=== PATIENT | female | born 1940 | race Caucasian/White ===

== ENCOUNTER → 2017-10-30 10:02 | Outpatient (CLI) | payer MEDICARE, SELFPAY ==
[2017-10-30 11:28] LABS: Hemoglobin A1C% w Est Avg Glu 5.9 % (4.0-6.0)
[2017-10-30 11:41] LABS: Alanine Aminotransferase 33 IU/L (9-52); Albumin 4.3 g/dL (3.5-5.0); Albumin Globulin Ratio 1.5 (1.0-2.8); Alkaline Phosphatase 62 U/L (38-126); Aspartate Aminotransferase 27 IU/L (14-36); Bilirubin Total 0.9 mg/dL (0.2-1.3); Blood Urea Nitrogen 36 mg/dL (7-17); Calcium 9.6 mg/dL (8.4-10.2); Carbon Dioxide 31 mmol/L (22-32); Chloride 98 mmol/L (98-107); Cholesterol 186 mg/dL (140-199); Estimated Glomerular Filt Rate 43.8 mL/min (>60); Globulin 2.9 g/dL (1.7-4.1); Glucose 118 mg/dL (80-110); HDL Cholesterol 62 mg/dL (40-60); HEMOLYSIS < 15 (0-50); LDL Cholesterol Calculated 101 mg/dL (<100); Sodium 140 mmol/L (137-145); Total Protein 7.2 g/dL (6.3-8.2); Triglycerides 113 mg/dL (35-150)
== END ==
PROVIDERS: PCP Family Medicine; Visit Provider Family Medicine
DX: N18.3 Chronic kidney disease, stage 3 (moderate) (principal); I10 Essential (primary) hypertension; R73.03 Prediabetes
CPT/HCPCS: 36415; 80053; 80061; 83036

== ENCOUNTER → 2017-10-31 10:11 | Outpatient (CLI) | payer MEDICARE, SELFPAY ==
--- NOTE | 2017-10-31 | DI.MG.S_ITS ---
BILATERAL DIGITAL SCREENING MAMMOGRAM 3D/2D WITH CAD POST LUMPECTOMY: 10/31/2017 CLINICAL: Routine screening. Personal history of right breast cancer. Family history of breast cancer. Comparison is made to exams dated: 01/15/2017 localization, 01/15/2017 specimen, and 10/30/2016 mammogram - [facility]. The tissue of both breasts is heterogeneously dense. This may lower the sensitivity of mammography. Current study was also evaluated with a Computer Aided Detection (CAD) system. There are post operative findings in the right breast. No significant masses, calcifications, or other findings are seen in either breast. There has been no significant interval change. IMPRESSION: NEGATIVE There is no mammographic evidence of malignancy. A 1 year screening mammogram is recommended. This exam was interpreted at Station ID: [id number]. NOTE: For mammograms, a report in lay terms will be sent to the patient. Approximately 15% of breast malignancies will not be visualized mammographically. In the management of a palpable breast mass, a negative mammogram must not discourage biopsy of a clinically suspicious lesion. Electronically Signed By: Stephanie wallace/cristian:10/31/2017 11:40:18 letter sent: Normal Exam ACR BI-RADS Category 1: Negative 3341F
== END ==
PROVIDERS: Family Provider Family Medicine; PCP Family Medicine; Visit Provider Family Medicine
DX: Z12.31 Encounter for screening mammogram for malignant neoplasm of breast (principal); Z85.3 Personal history of malignant neoplasm of breast; Z80.3 Family history of malignant neoplasm of breast
CPT/HCPCS: 77063; 77067

== ENCOUNTER → 2018-08-21 11:04 | Outpatient (CLI) | payer MEDICARE, SELFPAY ==
[2018-06-25 13:57] VITALS: BMI 28.5
[2018-08-21 12:03] LABS: Add Manual Diff / Slide Review NO; Basophils Absolute Auto 0 /uL (0-100); Basophils Percent Auto 0.3 % (0-2); Eosinophils Absolute Auto 100 /uL (0-450); Eosinophils Percent Auto 1.9 % (2-4); Hematocrit 36.2 % (36-46); Hemoglobin 12.2 g/dL (12.0-16.0); Lymphocytes Absolute Auto 1400 /uL (1100-4500); Lymphocytes Percent Auto 24.1 % (25-40); Mean Corpuscular HGB Conc 33.7 % (30-36); Mean Corpuscular Hemoglobin 35.5 PG (26-34); Mean Corpuscular Volume 105.3 fL (80-100); Monocytes Absolute Auto 500 /uL (0-900); Monocytes Percent Auto 7.8 % (3-14); Neutrophils Absolute Auto 3900 /uL (1500-7000); Neutrophils Percent Auto 65.9 % (50-75); Platelet Count 193 X10^3/uL (150-400); Red Blood Cell Count 3.44 X10^6/uL (4.0-5.2); White Blood Cell Count 5.9 X10^3/uL (4.5-11.0)
[2018-08-21 12:21] LABS: Alanine Aminotransferase 29 IU/L (9-52); Albumin 4.4 g/dL (3.5-5.0); Albumin Globulin Ratio 1.7 (1.0-2.8); Alkaline Phosphatase 55 U/L (38-126); Aspartate Aminotransferase 25 IU/L (14-36); BUN Creatinine Ratio 30.9 (6-22); Bilirubin Total 0.6 mg/dL (0.2-1.3); Blood Urea Nitrogen 34 mg/dL (7-17); Calcium 9.4 mg/dL (8.4-10.2); Carbon Dioxide 28 mmol/L (22-32); Chloride 101 mmol/L (98-107); Cholesterol 173 mg/dL (140-199); Estimated Glomerular Filt Rate 48.3 mL/min (>60); Globulin 2.6 g/dL (1.7-4.1); Glucose 115 mg/dL (80-110); HDL Cholesterol 68 mg/dL (40-60); HEMOLYSIS < 15 (0-50); LDL Cholesterol Calculated 80 mg/dL (<100); Sodium 140 mmol/L (137-145); Triglycerides 127 mg/dL (35-150)
[2018-08-21 13:45] LABS: TSH w/ Reflex to FT4 1.52 uIU/mL (0.47-4.68)
== END ==
PROVIDERS: PCP Family Medicine; Visit Provider Family Medicine
DX: E78.5 Hyperlipidemia, unspecified (principal); N18.3 Chronic kidney disease, stage 3 (moderate); I12.9 Hypertensive chronic kidney disease with stage 1 through stage 4 chronic kidney disease, or unspecified chronic kidney disease
CPT/HCPCS: 36415; 80053; 80061; 84443; 85025

== ENCOUNTER → 2018-09-10 13:16 | Outpatient (CLI) | payer MEDICARE, SELFPAY ==
[2018-06-25 13:57] VITALS: BMI 28.5
== END ==
PROVIDERS: PCP Family Medicine; Visit Provider Family Medicine
DX: Z78.0 Asymptomatic menopausal state (principal); Z85.3 Personal history of malignant neoplasm of breast; Z87.891 Personal history of nicotine dependence
CPT/HCPCS: 77080

== ENCOUNTER → 2018-11-04 10:09 | Outpatient (CLI) | payer MEDICARE, SELFPAY ==
[2018-06-25 13:57] VITALS: BMI 28.5
--- NOTE | 2018-11-04 | DI.MG.S_ITS ---
BILATERAL DIGITAL SCREENING MAMMOGRAM 3D/2D WITH CAD: 11/04/2018 CLINICAL: Routine screening. Personal history of right breast cancer. Family history of breast cancer. Comparison is made to exams dated: 10/31/2017 mammogram, 10/30/2016 mammogram, 04/11/2016 mammogram, and 04/09/2016 mammogram - [facility]. The tissue of both breasts is heterogeneously dense. This may lower the sensitivity of mammography. Current study was also evaluated with a Computer Aided Detection (CAD) system. There are benign post operative findings in the right breast. No significant masses, calcifications, or other findings are seen in either breast. There has been no significant interval change. IMPRESSION: There is no mammographic evidence of malignancy. A 1 year screening mammogram is recommended. This exam was interpreted at Station ID: [id number]. NOTE: For mammograms, a report in lay terms will be sent to the patient. Approximately 15% of breast malignancies will not be visualized mammographically. In the management of a palpable breast mass, a negative mammogram must not discourage biopsy of a clinically suspicious lesion. Electronically Signed By: Darrel vance/cristian:11/04/2018 16:38:33 letter sent: Normal Exam ACR BI-RADS Category 2: Benign Finding(s) 3342F
[2018-11-04 10:36] LABS: Add Manual Diff / Slide Review NO; Basophils Absolute Auto 0 /uL (0-100); Basophils Percent Auto 0.7 % (0-2); Eosinophils Absolute Auto 100 /uL (0-450); Eosinophils Percent Auto 1.7 % (2-4); Hemoglobin 11.7 g/dL (12.0-16.0); Lymphocytes Absolute Auto 1400 /uL (1100-4500); Lymphocytes Percent Auto 29.4 % (25-40); Mean Corpuscular HGB Conc 34.4 % (30-36); Mean Corpuscular Hemoglobin 36.3 PG (26-34); Mean Corpuscular Volume 105.5 fL (80-100); Monocytes Absolute Auto 500 /uL (0-900); Monocytes Percent Auto 9.4 % (3-14); Neutrophils Absolute Auto 2900 /uL (1500-7000); Neutrophils Percent Auto 58.8 % (50-75); Platelet Count 187 X10^3/uL (150-400); Red Blood Cell Count 3.22 X10^6/uL (4.0-5.2); Red Cell Distribution Width 12.8 % (11.6-14.8); White Blood Cell Count 4.9 X10^3/uL (4.5-11.0)
[2018-11-04 10:48] LABS: Alanine Aminotransferase 23 IU/L (9-52); Albumin 4.4 g/dL (3.5-5.0); Albumin Globulin Ratio 1.8 (1.0-2.8); Alkaline Phosphatase 55 U/L (38-126); Aspartate Aminotransferase 28 IU/L (14-36); Bilirubin Total 0.9 mg/dL (0.2-1.3); Blood Urea Nitrogen 33 mg/dL (7-17); Calcium 9.6 mg/dL (8.4-10.2); Carbon Dioxide 29 mmol/L (22-32); Chloride 103 mmol/L (98-107); Estimated Glomerular Filt Rate 33.8 mL/min (>60); Globulin 2.5 g/dL (1.7-4.1); Glucose 117 mg/dL (80-110); HEMOLYSIS < 15 (0-50); Potassium 4.5 mmol/L (3.4-5.1); Sodium 140 mmol/L (137-145); Total Protein 6.9 g/dL (6.3-8.2)
[2018-11-04 12:23] LABS: Rubella Antibody IgG > 350.0 IU/mL (>15)
[2018-11-07 10:17] LABS: Rubeola Measles IgG > 300.00 AU/mL (< 25.00)
== END ==
PROVIDERS: PCP Family Medicine; Visit Provider Family Medicine
DX: Z12.31 Encounter for screening mammogram for malignant neoplasm of breast (principal); Z85.3 Personal history of malignant neoplasm of breast; Z80.3 Family history of malignant neoplasm of breast; Z01.84 Encounter for antibody response examination
CPT/HCPCS: 36415; 77063; 77067; 80053; 85025; 86735; 86762; 86765

== ENCOUNTER → 2018-11-24 10:55 | Outpatient (CLI) | payer MEDICARE, SELFPAY ==
[2018-06-25 13:57] VITALS: BMI 28.5
[2018-11-24 12:25] LABS: BUN Creatinine Ratio 21.7 (6-22); Blood Urea Nitrogen 26 mg/dL (7-17); Calcium 9.3 mg/dL (8.4-10.2); Carbon Dioxide 27 mmol/L (22-32); Chloride 100 mmol/L (98-107); Estimated Glomerular Filt Rate 43.7 mL/min (>60); Glucose 111 mg/dL (80-110); HEMOLYSIS < 15 (0-50); Potassium 4.4 mmol/L (3.4-5.1); Sodium 136 mmol/L (137-145)
== END ==
PROVIDERS: PCP Family Medicine; Visit Provider Family Medicine
DX: N18.3 Chronic kidney disease, stage 3 (moderate) (principal)
CPT/HCPCS: 36415; 80048

== ENCOUNTER → 2019-11-10 14:01 | Outpatient (CLI) | payer MEDICARE, SELFPAY ==
[2019-08-24 15:10] VITALS: BMI 28.5
[2019-11-10 14:58] LABS: Add Manual Diff / Slide Review NO; Basophils Absolute Auto 0 /uL (0-100); Basophils Percent Auto 0.4 % (0-2); Eosinophils Absolute Auto 100 /uL (0-450); Eosinophils Percent Auto 1.4 % (2-4); Hematocrit 34.9 % (36-46); Lymphocytes Absolute Auto 1600 /uL (1100-4500); Lymphocytes Percent Auto 25.4 % (25-40); Mean Corpuscular HGB Conc 34.4 % (30-36); Mean Corpuscular Hemoglobin 36.9 PG (26-34); Mean Corpuscular Volume 107.5 fL (80-100); Monocytes Absolute Auto 600 /uL (0-900); Monocytes Percent Auto 9.6 % (3-14); Neutrophils Absolute Auto 3900 /uL (1500-7000); Neutrophils Percent Auto 63.2 % (50-75); Platelet Count 189 X10^3/uL (150-400); Red Blood Cell Count 3.25 X10^6/uL (4.0-5.2); Red Cell Distribution Width 12.6 % (11.6-14.8); White Blood Cell Count 6.1 X10^3/uL (4.5-11.0)
[2019-11-10 15:04] LABS: Alanine Aminotransferase 17 IU/L (<35); Albumin 4.4 g/dL (3.5-5.0); Albumin Globulin Ratio 1.8 (1.0-2.8); Alkaline Phosphatase 57 U/L (38-126); Aspartate Aminotransferase 31 IU/L (14-36); BUN Creatinine Ratio 21.4 (6-22); Bilirubin Total 0.5 mg/dL (0.2-1.3); Blood Urea Nitrogen 21 mg/dL (7-17); Calcium 9.9 mg/dL (8.4-10.2); Carbon Dioxide 32 mmol/L (22-32); Chloride 99 mmol/L (98-107); Globulin 2.5 g/dL (1.7-4.1); Glucose 83 mg/dL (80-110); HEMOLYSIS < 15 (0-50); Potassium 3.9 mmol/L (3.4-5.1); Sodium 134 mmol/L (137-145); Total Protein 6.9 g/dL (6.3-8.2)
[2019-11-13 12:52] LABS: Vitamin B12 623 pg/mL (239-931)
== END ==
PROVIDERS: PCP Family Medicine; Referring Provider Family Medicine; Visit Provider Family Medicine
DX: D75.89 Other specified diseases of blood and blood-forming organs (principal); I10 Essential (primary) hypertension
CPT/HCPCS: 36415; 80053; 82607; 85025

== ENCOUNTER → 2019-12-16 15:45 | Outpatient (CLI) | payer MEDICARE, SELFPAY ==
[2019-08-24 15:10] VITALS: BMI 28.5
--- NOTE | 2019-12-16 | DI.MG.S_ITS ---
BILATERAL DIGITAL SCREENING MAMMOGRAM 3D/2D WITH CAD: 12/16/2019 CLINICAL: Routine screening. Breast cancer. Family history of breast cancer. Comparison is made to exams dated: 11/04/2018 mammogram, 10/31/2017 mammogram, and 10/30/2016 mammogram - [facility]. The tissue of both breasts is heterogeneously dense. This may lower the sensitivity of mammography. Current study was also evaluated with a Computer Aided Detection (CAD) system. There are benign post operative findings in the right breast. No significant masses, calcifications, or other findings are seen in either breast. There has been no significant interval change. IMPRESSION: There is no mammographic evidence of malignancy. A 1 year screening mammogram is recommended. This exam was interpreted at Station ID: [id number]. NOTE: For mammograms, a report in lay terms will be sent to the patient. Approximately 15% of breast malignancies will not be visualized mammographically. In the management of a palpable breast mass, a negative mammogram must not discourage biopsy of a clinically suspicious lesion. Electronically Signed By: Stephanie wallace/cristian:12/16/2019 16:09:31 copy to: Maeve Araiza letter sent: Normal Exam ACR BI-RADS Category 2: Benign Finding(s) 3342F
== END ==
PROVIDERS: PCP Family Medicine; Referring Provider Family Medicine; Visit Provider Family Medicine
DX: Z12.31 Encounter for screening mammogram for malignant neoplasm of breast (principal); Z85.3 Personal history of malignant neoplasm of breast; Z80.3 Family history of malignant neoplasm of breast
CPT/HCPCS: 77063; 77067

== ENCOUNTER 2020-03-21 15:15 | Outpatient (RCR) | payer MEDICARE, SELFPAY ==
[2019-08-24 15:10] VITALS: BMI 28.5
--- NOTE | 2020-01-11 17:09 | PT.OIE ---
Current Diagnoses Other abnormalities of gait and mobility (01/11/20) Past Medical History (Last Reviewed 12/31/19 @ 14:36 by Lilian Whitehead DO) Adult situational stress disorder (Chronic 08/03/15) Alcohol use (Acute) Cataracts, bilateral (Chronic) Chicken pox (Resolved) Chronic obstructive pulmonary disease (Chronic 06/08/15) Cobalamin deficiency (Chronic 12/26/10) Colon polyps (Chronic) Essential hypertension (Chronic 04/15/12) Glaucoma (Chronic 03/27/13) Glucose intolerance (Chronic) Hemorrhoid (Chronic ~2004) History of adenomatous polyp of colon (Chronic) Hyperlipidemia (Chronic) Malignant neoplasm of upper-outer quadrant of right breast in female, estrogen receptor positive (Chronic 11/02/16) Measles (Resolved) Seborrheic keratosis (Chronic) Sleep apnea (Chronic ~1994) Stage 3 chronic kidney disease (Chronic 09/10/14) Past Surgical History (Last Reviewed 12/31/19 @ 14:36 by Lilian Whitehead DO) History of lithotripsy (~1986) Perirectal abscess (Resolved ~1957) Pilonidal cyst (Resolved ~1959) S/P right mastectomy (Resolved) Visit Care Team Role Provider Type Lilian Whitehead DO Attending Provider Physician Family Provider Primary Care Provider Referring Provider Specialty: [facility] Address: [address] [place] [address], [facility] Email: [email or web address] Physical Therapy Initial Evaluation PT-OP-A Visit Information Start: 01/11/20 16:35 Freq: Status: Active Protocol: Document 01/11/20 16:36 HH (Rec: 01/11/20 17:07 [email or web address]) Out-Patient Physical Therapy Visit Information Visit Information Visit Type Initial Evaluation Visit Start Time 14:31 Visit Stop Time 15:15 Total Visit Minutes 44 Visit Number 06/07 Number of ORE GRADER Visits 0 Evaluation Information Evaluation Date 01/11/20 PT-OP-B Current Condition Start: 01/11/20 16:35 Freq: Status: Active Protocol: Document 01/11/20 16:36 HH (Rec: 01/11/20 17:07 [email or web address]) Current Condition History of Current Condition Onset Date Jun, 2016 Current Complaints hx of falls, poor balance History of Current Condition Pt is a 79yo female here to improve her balance. Pt stated she had glaucoma surgery in April 2016 who woke up one morning with significant vision loss from infection in June,. Pt is unable to see medial and center field every since then. She stated she could only have blurry vision for lateral visual field but mostly rely on her L eye for guidance. Her main c/ o is poor depth perception and peripheral vision who tends to bump her R side of the body into wall/ obstacles. She also noticed she has to pay close attention on steps height and surrounding obstacles on her R side. Pt has couple falls within the past year but no significant injury noted. She stated her confidence level of balance has been declining and needed to use wall/ support to cruise sometimes for safety. Treatment Goals Patient/Caregiver Goals 1. To improve her overall balance 2. Able to recover from the floor after a fall Prior Functional Status Baseline Function- ADL's Independent Baseline Function- Mobility Independent PT-OP-C Subjective Start: 01/11/20 16:35 Freq: Status: Active Protocol: Document 01/11/20 16:36 (Rec: 01/11/20 17:07 [email or web address]) Patient Questionnaires ABC- Activity Specific Balance Confidence Scale ABC Score 80.6 ABC Functional Impairment 1 to <20% Impaired (Score 81- 99) Dizziness Handicap Inventory DHI Score 38 DHI Functional Impairment 20 to 39% Impaired (Score 20- 39) PT-OP-D Balance Start: 01/11/20 16:35 Freq: Status: Active Protocol: Document 01/11/20 16:36 (Rec: 01/11/20 17:07 [email or web address]) Balance Tests Single Limb Standing Single Limb- Right 2 Single Limb- Left 2 Lawrence Balance Assessment Evaluation Sitting to Standing Ability Independent w/out Hands Unsupported Stance Safely- 2 minutes Sitting Unsupported, Feet on Floor Safely- 2 minutes Standing to Sitting Ability Safely, Minimal Hand Use Transfer Ability Safely, Minimal Hand Use Unsupported Stance- Eyes Closed Safely, 10 seconds Unsupported Stance- Eyes Open Independent, 1 minute Reaching Forward Standing Confidently, 10 inches Pick- Up Object From Floor Independent/Safe Look Behind Shoulder - Standing Shifts Weight Well Turning 360 Degrees Turns Bilateral, < 4 secs Unsupported Stance, Alternating Feet on (I)- 8 Steps in > 20 secs Stair Unsupported Tandem Stance Assist to Step-15 seconds Unilateral Leg Stance Lifts Leg/Unable to Hold Total Score Lawrence Total Score (out of 56 points) 49 PT-OP-E Functional Tests Start: 01/11/20 16:35 Freq: Status: Active Protocol: Document 01/11/20 16:36 HH (Rec: 01/11/20 17:07 [email or web address]) Functional Tests Dynamic Gait Index (DGI) Score 21 DGI Impairment Rating 1 to <20% Impaired (Score 20- 23) PT-OP-G Mobility & Gait Start: 01/11/20 16:35 Freq: Status: Active Protocol: Document 01/11/20 16:36 HH (Rec: 01/11/20 17:07 [email or web address]) Stair Climbing Evaluation Evaluation Level of Assist On Stairs Independent Devices Stair Climbing Assistive Devices Left Railing Technique/Endurance Stair Climbing Direction Ascend and Descend Stair Climbing Technique Step Over Step PT-OP-Q Treatments Start: 01/11/20 16:35 Freq: Status: Active Protocol: Document 01/11/20 16:36 HH (Rec: 01/11/20 17:08 [email or web address]) Self-Care/Home Management Treatment Education Other Education Education on importance of eye function and visual field to depth perception and mobility. Explained POC to focus on improve body awareness, SLS, LE strength to reduce risk of falling. PT-OP-T Assessment and Plan Start: 01/11/20 16:35 Freq: Status: Active Protocol: Document 01/11/20 16:36 (Rec: 01/11/20 17:07 [email or web address]) Physical Therapy Assessment Rehab Potential Rehabilitation Potential Good Evaluation Complexity Number of Personal Factors/Comorbidities 1-2 Number of Body Systems Impaired 1-2 Clinical Presentation at Evaluation Stable Impairments Impairments Activity Tolerance,Balance, Functional Activities, Functional Mobility,Gait, Strength Goals Single leg stance Impairment pt has 2s for SLS only. Photographer Assistant Goal (LTG) Pt will be able to stand on one leg up to 10 seconds to improve SL balance so she can climb stairs, step over obstacle safely. LTG Duration 6 weeks floor recovery Impairment pt stated she is unable to get up from the floor after a fall Photographer Assistant Goal (LTG) Pt will improve her B LE strength so she can recover from the floor without assistance in the future LTG Duration 6 weeks dizziness questionnaire Impairment pt scores 38 Photographer Assistant Goal (LTG) pt will score >39 on dizziness questionnaire to improve her overall balance, dizziness and confidence level for functional mobility. LTG Duration 6 weeks Assessment Summary Assessment This is a low complexity evaluation for this 79 yo active female here to improve her balance. 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 However, pt scores 21/24 for DGI, 49/56 for LAWRENCE who only has difficulty on stepping over obstacle and single leg balance primarily. 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 Physical Therapy Plan Frequency and Duration Frequency of Treatment 1x/Week Duration of Treatment 6 weeks. Plan of Care Start Date 01/11/20 Plan of Care End Date 02/25/20 Therapeutic Interventions Therapeutic Interventions Balance Training,Gait Training ,Home Exercise Program, Neuromuscular Re-education, Patient/Caregiver Education, Self-Care/Home Management, Therapeutic Activities, Therapeutic Exercises, Vestibular Rehabilitation Next Visit Focus/Plan Next Note Type Treatment Note Next Visit Plan balance training with NBOS with EC, SL stance, obstacle course, hurdles, stair climbing stepper, leg press
--- NOTE | 2020-01-11 17:09 | PT.OPPOC ---
Physical, Occupational & Speech Therapy At [facility] Current Diagnoses Other abnormalities of gait and mobility (01/11/20) Visit Care Team Role Provider Type Lilian Whitehead DO Attending Provider Physician Family Provider Primary Care Provider Referring Provider Specialty: Family Practice Address: [address] [place] [address], [id number] Email: [email or web address] Plan Of Care PT-OP-T Assessment and Plan Start: 01/11/20 16:35 Freq: Status: Active Protocol: Document 01/11/20 16:36 HH (Rec: 01/11/20 17:07 [email or web address]) Physical Therapy Assessment Rehab Potential Rehabilitation Potential Good Evaluation Complexity Number of Personal Factors/Comorbidities 1-2 Number of Body Systems Impaired 1-2 Clinical Presentation at Evaluation Stable Impairments Impairments Activity Tolerance,Balance, Functional Activities, Functional Mobility,Gait, Strength Goals Single leg stance Impairment pt has 2s for SLS only. Senior Living Goal (LTG) Pt will be able to stand on one leg up to 10 seconds to improve SL balance so she can climb stairs, step over obstacle safely. LTG Duration 6 weeks floor recovery Impairment pt stated she is unable to get up from the floor after a fall Pipe Blanks Cut Off Saw Operator Goal (LTG) Pt will improve her B LE strength so she can recover from the floor without assistance in the future LTG Duration 6 weeks dizziness questionnaire Impairment pt scores 38 Senior Living Goal (LTG) pt will score >39 on dizziness questionnaire to improve her overall balance, dizziness and confidence level for functional mobility. LTG Duration 6 weeks Assessment Summary Assessment This is a low complexity evaluation for this 79 yo active female here to improve her balance. 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 However, pt scores 21/24 for DGI, 49/56 for LAWRENCE who only has difficulty on stepping over obstacle and single leg balance primarily. 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 Physical Therapy Plan Frequency and Duration Frequency of Treatment 1x/Week Duration of Treatment 6 weeks. Plan of Care Start Date 01/11/20 Plan of Care End Date 02/25/20 Therapeutic Interventions Therapeutic Interventions Balance Training,Gait Training ,Home Exercise Program, Neuromuscular Re-education, Patient/Caregiver Education, Self-Care/Home Management, Therapeutic Activities, Therapeutic Exercises, Vestibular Rehabilitation Next Visit Focus/Plan Next Note Type Treatment Note Next Visit Plan balance training with NBOS with EC, SL stance, obstacle course, hurdles, stair climbing stepper, leg press Plan of Care Dates Plan of Care Start Date 01/11/20 Plan of Care End Date 02/25/20 Electronically Signed by: Calixto Chauhan, PT 01/11/20 [id number] Please Sign and Return: I have reviewed this Plan of Care and certify that the skilled therapy services above are required to meet the patient?s needs. Physician Signature Date Printed Name and Credentials Clinical Instructor Signature Printed Name and Credentials
--- NOTE | 2020-01-14 16:13 | PT.OTN ---
Current Diagnoses Other abnormalities of gait and mobility (01/14/20) Physical Therapy Treatment Note PT-OP-A Visit Information Start: 01/11/20 16:35 Freq: Status: Active Protocol: Document 01/14/20 14:33 HH (Rec: 01/14/20 16:13 [id number]) Out-Patient Physical Therapy Visit Information Visit Information Visit Type Treatment Note Visit Start Time 14:32 Visit Stop Time 15:15 Total Visit Minutes 43 Visit Number / Number of PIPE FINISHING SUPERVISOR Visits 0 PT-OP-B Current Condition Start: 01/11/20 16:35 Freq: Status: Active Protocol: Document 01/11/20 16:36 HH (Rec: 01/11/20 17:07 [email or web address]) Current Condition History of Current Condition Onset Date Jun, 2016 Current Complaints hx of falls, poor balance History of Current Condition Pt is a 79yo female here to improve her balance. Pt stated she had glaucoma surgery in April 2016 who woke up one morning with significant vision loss from infection in June,. Pt is unable to see medial and center field every since then. She stated she could only have blurry vision for lateral visual field but mostly rely on her L eye for guidance. Her main c/ o is poor depth perception and peripheral vision who tends to bump her R side of the body into wall/ obstacles. She also noticed she has to pay close attention on steps height and surrounding obstacles on her R side. Pt has couple falls within the past year but no significant injury noted. She stated her confidence level of balance has been declining and needed to use wall/ support to cruise sometimes for safety. Treatment Goals Patient/Caregiver Goals 1. To improve her overall balance 2. Able to recover from the floor after a fall Prior Functional Status Baseline Function- ADL's Independent Baseline Function- Mobility Independent PT-OP-C Subjective Start: 01/11/20 16:35 Freq: Status: Active Protocol: Document 01/14/20 14:33 HH (Rec: 01/14/20 16:13 HH [id number]) OP-PT Subjective Patient Comments Patient Comments Im ready for therapy PT-OP-D Balance Start: 01/11/20 16:35 Freq: Status: Active Protocol: Document 01/11/20 16:36 HH (Rec: 01/11/20 17:07 [email or web address]) Balance Tests Single Limb Standing Single Limb- Right 2 Single Limb- Left 2 Kaur Balance Assessment Evaluation Sitting to Standing Ability Independent w/out Hands Unsupported Stance Safely- 2 minutes Sitting Unsupported, Feet on Floor Safely- 2 minutes Standing to Sitting Ability Safely, Minimal Hand Use Transfer Ability Safely, Minimal Hand Use Unsupported Stance- Eyes Closed Safely, 10 seconds Unsupported Stance- Eyes Open Independent, 1 minute Reaching Forward Standing Confidently, 10 inches Pick- Up Object From Floor Independent/Safe Look Behind Shoulder - Standing Shifts Weight Well Turning 360 Degrees Turns Bilateral, < 4 secs Unsupported Stance, Alternating Feet on (I)- 8 Steps in > 20 secs Stair Unsupported Tandem Stance Assist to Step-15 seconds Unilateral Leg Stance Lifts Leg/Unable to Hold Total Score Kaur Total Score (out of 56 points) 49 PT-OP-E Functional Tests Start: 01/11/20 16:35 Freq: Status: Active Protocol: Document 01/11/20 16:36 HH (Rec: 01/11/20 17:07 [email or web address]) Functional Tests Dynamic Gait Index (DGI) Score 21 DGI Impairment Rating 1 to <20% Impaired (Score 20- 23) PT-OP-G Mobility & Gait Start: 01/11/20 16:35 Freq: Status: Active Protocol: Document 01/11/20 16:36 HH (Rec: 01/11/20 17:07 [email or web address]) Stair Climbing Evaluation Evaluation Level of Assist On Stairs Independent Devices Stair Climbing Assistive Devices Left Railing Technique/Endurance Stair Climbing Direction Ascend and Descend Stair Climbing Technique Step Over Step PT-OP-Q Treatments Start: 01/11/20 16:35 Freq: Status: Active Protocol: Document 01/14/20 14:33 HH (Rec: 01/14/20 16:13 [id number]) Cardio Equipment Recumbent Stepper (Sci-Fit) Duration (Minutes) 6 Resistance 2.0 Seat Position 9 Gym Equipment Shuttle Balance red Details static stance then staggered stance Reps/Duration CGA for 6 mins Therapeutic Exercises Standing Exercises step up Standing Exercise Name 6 step Reps/Minutes 10 x2 Comments for HEP, finger support on rails side stepping Standing Exercise Name no support Reps/Minutes 20 ft x 4 Comments for HEP marching in place Standing Exercise Name no support Comments for HEP, Neuro Re-Education Treatment Balance Activities reactive balance Details EC Surface ground then blue foam Reps/Duration 10 mins Comments static stance then PT provided perturbations. Pt was steadier on ground floor after practicing with blue foam. staggered stance Details EO Surface ground level Equipment next to grab bar Reps/Duration 2 mins Comments pt was able to hold ~8seconds PT-OP-T Assessment and Plan Start: 01/11/20 16:35 Freq: Status: Active Protocol: Document 01/14/20 14:33 HH (Rec: 01/14/20 16:13 [id number]) Physical Therapy Assessment Goals Single leg stance Impairment pt has 2s for SLS only. Proposal Coordinator Goal (LTG) Pt will be able to stand on one leg up to 10 seconds to improve SL balance so she can climb stairs, step over obstacle safely. LTG Duration 6 weeks floor recovery Impairment pt stated she is unable to get up from the floor after a fall Proposal Coordinator Goal (LTG) Pt will improve her B LE strength so she can recover from the floor without assistance in the future LTG Duration 6 weeks dizziness questionnaire Impairment pt scores 38 Proposal Coordinator Goal (LTG) pt will score >39 on dizziness questionnaire to improve her overall balance, dizziness and confidence level for functional mobility. LTG Duration 6 weeks Assessment Summary Assessment Pt chip session well. Pt's reactive balance on the floor improved after practicing on foam surface. She was then able to do tandem stance up to 8 seconds who was unable to hold> 2 s from IE. Physical Therapy Plan Next Visit Focus/Plan Next Note Type Treatment Note Next Visit Plan balance training with NBOS with EC, SL stance, obstacle course, hurdles, stair climbing stepper, leg press
--- NOTE | 2020-01-21 11:18 | PT.OTN ---
Current Diagnoses Other abnormalities of gait and mobility (01/21/20) Physical Therapy Treatment Note PT-OP-A Visit Information Start: 01/11/20 16:35 Freq: Status: Active Protocol: Document 01/21/20 10:53 [facility] (Rec: 01/21/20 11:17 [facility] [id number]) Out-Patient Physical Therapy Visit Information Visit Information Visit Type Treatment Note Visit Start Time 10:32 Visit Stop Time 11:12 Total Visit Minutes 40 Visit Number 3/10 Number of SPA DIRECTOR Visits 0 PT-OP-B Current Condition Start: 01/11/20 16:35 Freq: Status: Active Protocol: Document 01/11/20 16:36 [facility] (Rec: 01/11/20 17:07 [email or web address]) Current Condition History of Current Condition Onset Date Jun, 2016 Current Complaints hx of falls, poor balance History of Current Condition Pt is a 79yo female here to improve her balance. Pt stated she had glaucoma surgery in April 2016 who woke up one morning with significant vision loss from infection in June,. Pt is unable to see medial and center field every since then. She stated she could only have blurry vision for lateral visual field but mostly rely on her L eye for guidance. Her main c/ o is poor depth perception and peripheral vision who tends to bump her R side of the body into wall/ obstacles. She also noticed she has to pay close attention on steps height and surrounding obstacles on her R side. Pt has couple falls within the past year but no significant injury noted. She stated her confidence level of balance has been declining and needed to use wall/ support to cruise sometimes for safety. Treatment Goals Patient/Caregiver Goals 1. To improve her overall balance 2. Able to recover from the floor after a fall Prior Functional Status Baseline Function- ADL's Independent Baseline Function- Mobility Independent PT-OP-C Subjective Start: 01/11/20 16:35 Freq: Status: Active Protocol: Document 01/21/20 10:53 [facility] (Rec: 01/21/20 11:17 [facility] [id number]) OP-PT Subjective Patient Comments Patient Comments Pt reports compliance with exercise besides step ups because she would have to go outside to steps PT-OP-D Balance Start: 01/11/20 16:35 Freq: Status: Active Protocol: Document 01/11/20 16:36 [facility] (Rec: 01/11/20 17:07 [email or web address]) Balance Tests Single Limb Standing Single Limb- Right 2 Single Limb- Left 2 Kaur Balance Assessment Evaluation Sitting to Standing Ability Independent w/out Hands Unsupported Stance Safely- 2 minutes Sitting Unsupported, Feet on Floor Safely- 2 minutes Standing to Sitting Ability Safely, Minimal Hand Use Transfer Ability Safely, Minimal Hand Use Unsupported Stance- Eyes Closed Safely, 10 seconds Unsupported Stance- Eyes Open Independent, 1 minute Reaching Forward Standing Confidently, 10 inches Pick- Up Object From Floor Independent/Safe Look Behind Shoulder - Standing Shifts Weight Well Turning 360 Degrees Turns Bilateral, < 4 secs Unsupported Stance, Alternating Feet on (I)- 8 Steps in > 20 secs Stair Unsupported Tandem Stance Assist to Step-15 seconds Unilateral Leg Stance Lifts Leg/Unable to Hold Total Score Kaur Total Score (out of 56 points) 49 PT-OP-E Functional Tests Start: 01/11/20 16:35 Freq: Status: Active Protocol: Document 01/11/20 16:36 (Rec: 01/11/20 17:07 [email or web address]) Functional Tests Dynamic Gait Index (DGI) Score 21 DGI Impairment Rating 1 to <20% Impaired (Score 20- 23) PT-OP-G Mobility & Gait Start: 01/11/20 16:35 Freq: Status: Active Protocol: Document 01/11/20 16:36 (Rec: 01/11/20 17:07 [email or web address]) Stair Climbing Evaluation Evaluation Level of Assist On Stairs Independent Devices Stair Climbing Assistive Devices Left Railing Technique/Endurance Stair Climbing Direction Ascend and Descend Stair Climbing Technique Step Over Step PT-OP-Q Treatments Start: 01/11/20 16:35 Freq: Status: Active Protocol: Document 01/21/20 10:53 [facility] (Rec: 01/21/20 11:17 [facility] [id number]) Cardio Equipment Recumbent Elliptical (Biodex) Duration (Minutes) 5 Resistance 7 Seat Position 6 Gym Equipment Shuttle Recovery Bilateral Squats Resistance 87# Shuttle Recovery Platform Stable Reps/Time 2x15 Shuttle Balance red Comments fwd & Side: WBOS fwd: NBOS & staggered stance Therapeutic Exercises Standing Exercises step up Standing Exercise Name 8in stepstool Reps/Minutes 10 Comments for HEP, finger support on rails side stepping Standing Exercise Name no support Reps/Minutes 20 ft Comments for HEP marching in place Standing Exercise Name no support Comments cued for slow motion Neuro Re-Education Treatment Balance Activities hurdles Reps/Duration 8 laps fwd & 6 laps side B ea tandem stance Details by rail PT-OP-T Assessment and Plan Start: 01/11/20 16:35 Freq: Status: Active Protocol: Document 01/21/20 10:53 [facility] (Rec: 01/21/20 11:17 [facility] [id number]) Physical Therapy Assessment Goals Single leg stance Impairment pt has 2s for SLS only. Airline Stewardess Goal (LTG) Pt will be able to stand on one leg up to 10 seconds to improve SL balance so she can climb stairs, step over obstacle safely. LTG Duration 6 weeks floor recovery Impairment pt stated she is unable to get up from the floor after a fall Senior Living Goal (LTG) Pt will improve her B LE strength so she can recover from the floor without assistance in the future LTG Duration 6 weeks dizziness questionnaire Impairment pt scores 38 Senior Living Goal (LTG) pt will score >39 on dizziness questionnaire to improve her overall balance, dizziness and confidence level for functional mobility. LTG Duration 6 weeks Assessment Summary Assessment Pt able to tolerate further challenges on balance board today. She did well with strenthening exercises with leg press used to work on inc ease to get up from her low chair since pt noted that was difficult at home. Physical Therapy Plan Frequency and Duration Frequency of Treatment 1x/Week Duration of Treatment 6 weeks. Plan of Care Start Date 01/11/20 Plan of Care End Date 02/25/20 Next Visit Focus/Plan Next Note Type Treatment Note Next Visit Plan balance training with NBOS with EC, SL stance, obstacle course, hurdles, stair climbing stepper, leg press
--- NOTE | 2020-01-28 12:01 | PT.OTN ---
Current Diagnoses Other abnormalities of gait and mobility (01/28/20) Physical Therapy Treatment Note PT-OP-A Visit Information Start: 01/11/20 16:35 Freq: Status: Active Protocol: Document 01/28/20 11:19 [facility] (Rec: 01/28/20 12:01 [facility] [id number]) Out-Patient Physical Therapy Visit Information Visit Information Visit Type Treatment Note Visit Start Time 11:20 Visit Stop Time 11:59 Total Visit Minutes 39 Visit Number 4/10 Number of WAREHOUSEMAN Visits 0 PT-OP-B Current Condition Start: 01/11/20 16:35 Freq: Status: Active Protocol: Document 01/11/20 16:36 [facility] (Rec: 01/11/20 17:07 HH [email or web address]) Current Condition History of Current Condition Onset Date Jun, 2016 Current Complaints hx of falls, poor balance History of Current Condition Pt is a 79yo female here to improve her balance. Pt stated she had glaucoma surgery in April 2016 who woke up one morning with significant vision loss from infection in June,. Pt is unable to see medial and center field every since then. She stated she could only have blurry vision for lateral visual field but mostly rely on her L eye for guidance. Her main c/ o is poor depth perception and peripheral vision who tends to bump her R side of the body into wall/ obstacles. She also noticed she has to pay close attention on steps height and surrounding obstacles on her R side. Pt has couple falls within the past year but no significant injury noted. She stated her confidence level of balance has been declining and needed to use wall/ support to cruise sometimes for safety. Treatment Goals Patient/Caregiver Goals 1. To improve her overall balance 2. Able to recover from the floor after a fall Prior Functional Status Baseline Function- ADL's Independent Baseline Function- Mobility Independent PT-OP-C Subjective Start: 01/11/20 16:35 Freq: Status: Active Protocol: Document 01/28/20 11:19 [facility] (Rec: 01/28/20 12:01 [facility] [id number]) OP-PT Subjective Patient Comments Patient Comments Pt reports doing the exercises sometimes. REports some leg soreness with them PT-OP-D Balance Start: 01/11/20 16:35 Freq: Status: Active Protocol: Document 01/11/20 16:36 [facility] (Rec: 01/11/20 17:07 HH [email or web address]) Balance Tests Single Limb Standing Single Limb- Right 2 Single Limb- Left 2 Kaur Balance Assessment Evaluation Sitting to Standing Ability Independent w/out Hands Unsupported Stance Safely- 2 minutes Sitting Unsupported, Feet on Floor Safely- 2 minutes Standing to Sitting Ability Safely, Minimal Hand Use Transfer Ability Safely, Minimal Hand Use Unsupported Stance- Eyes Closed Safely, 10 seconds Unsupported Stance- Eyes Open Independent, 1 minute Reaching Forward Standing Confidently, 10 inches Pick- Up Object From Floor Independent/Safe Look Behind Shoulder - Standing Shifts Weight Well Turning 360 Degrees Turns Bilateral, < 4 secs Unsupported Stance, Alternating Feet on (I)- 8 Steps in > 20 secs Stair Unsupported Tandem Stance Assist to Step-15 seconds Unilateral Leg Stance Lifts Leg/Unable to Hold Total Score Kaur Total Score (out of 56 points) 49 PT-OP-E Functional Tests Start: 01/11/20 16:35 Freq: Status: Active Protocol: Document 01/11/20 16:36 (Rec: 01/11/20 17:07 [email or web address]) Functional Tests Dynamic Gait Index (DGI) Score 21 DGI Impairment Rating 1 to <20% Impaired (Score 20- 23) PT-OP-G Mobility & Gait Start: 01/11/20 16:35 Freq: Status: Active Protocol: Document 01/11/20 16:36 (Rec: 01/11/20 17:07 [email or web address]) Stair Climbing Evaluation Evaluation Level of Assist On Stairs Independent Devices Stair Climbing Assistive Devices Left Railing Technique/Endurance Stair Climbing Direction Ascend and Descend Stair Climbing Technique Step Over Step PT-OP-Q Treatments Start: 01/11/20 16:35 Freq: Status: Active Protocol: Document 01/28/20 11:19 [facility] (Rec: 01/28/20 12:01 [facility] [id number]) Cardio Equipment Recumbent Elliptical (Biodex) Duration (Minutes) 5 Resistance 7 Seat Position 6 Gym Equipment Shuttle Recovery Bilateral Squats Resistance 87# Shuttle Recovery Platform Stable Reps/Time 2x15 Shuttle Balance red Comments fwd & Side: WBOS &NBOS fwd: staggered stance Therapeutic Exercises Standing Exercises side stepping Standing Exercise Name no support Side bilateral Equipment Used yellow tband Reps/Minutes 20 ftx2 Neuro Re-Education Treatment Balance Activities bosu Details balancing rails prn SLS Details toe taps B Comments 6 in step hurdles Reps/Duration 8 laps fwd & 6 laps side B ea tandem stance Details tandem walkb y rail Reps/Duration 4x20ft reactive balance Details EC Surface ground then blue foam Reps/Duration 5 mins Comments static stance then PT provided perturbations. PT-OP-T Assessment and Plan Start: 01/11/20 16:35 Freq: Status: Active Protocol: Document 01/28/20 11:19 [facility] (Rec: 01/28/20 12:01 [facility] [id number]) Physical Therapy Assessment Goals Single leg stance Impairment pt has 2s for SLS only. Correction Goal (LTG) Pt will be able to stand on one leg up to 10 seconds to improve SL balance so she can climb stairs, step over obstacle safely. LTG Duration 6 weeks floor recovery Impairment pt stated she is unable to get up from the floor after a fall Correction Goal (LTG) Pt will improve her B LE strength so she can recover from the floor without assistance in the future LTG Duration 6 weeks dizziness questionnaire Impairment pt scores 38 Chronograph Operator Goal (LTG) pt will score >39 on dizziness questionnaire to improve her overall balance, dizziness and confidence level for functional mobility. LTG Duration 6 weeks Assessment Summary Assessment Pt reported fatigue in legs with exercise but did better with all balance exercises. Improved perfomrance of standing marching w/ slower movement to work on balance Physical Therapy Plan Frequency and Duration Frequency of Treatment 1x/Week Duration of Treatment 6 weeks. Plan of Care Start Date 01/11/20 Plan of Care End Date 02/25/20 Next Visit Focus/Plan Next Note Type Treatment Note Next Visit Plan balance training with NBOS with EC, SL stance, obstacle course, hurdles, stair climbing stepper, leg press
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
--- NOTE | 2020-02-23 16:15 | PT.OPPOC ---
Physical, Occupational & Speech Therapy At [facility] Current Diagnoses Other abnormalities of gait and mobility (02/23/20) Visit Care Team Role Provider Type Lilian Whitehead DO Attending Provider Physician Family Provider Primary Care Provider Referring Provider Specialty: Family Practice Address: [address] [place] [address], [id number] Email: [email or web address] Plan Of Care PT-OP-T Assessment and Plan Start: 01/11/20 16:35 Freq: Status: Active Protocol: Document 02/23/20 15:46 HH (Rec: 02/23/20 16:14 HH [id number]) Physical Therapy Assessment Goals Single leg stance Impairment pt has 2s for SLS only. Short Term Goal (STG) 10/6 SLS up to 8 seconds Half-Way Goal (LTG) Pt will be able to stand on one leg up to 10 seconds to improve SL balance so she can climb stairs, step over obstacle safely. LTG Duration 6 weeks floor recovery Impairment pt stated she is unable to get up from the floor after a fall Short Term Goal (STG) 10/6 pt is able to complete floor recovery with a chair. Half-Way Goal (LTG) Pt will improve her B LE strength so she can recover from the floor without assistance/ support in the future LTG Duration 6 weeks dizziness questionnaire Impairment pt scores 38 Short Term Goal (STG) Pt reports she does not have dizziness lately. Guest Service Representative Goal (LTG) pt will score >39 on dizziness questionnaire to improve her overall balance, dizziness and confidence level for functional mobility. LTG Duration 6 weeks Progress Towards Goals Progress Towards Goals Progressing Toward Goals Assessment Summary Assessment Pt shows good progress with overall static and dynamic balance. Although her falls/ balance deficits are mostly contributed by her limited L eye vision, pt is able to improve her overall sense of body balance and leg strength to reduce fall risks. Pt will cont benefit from skilled therapy to focus on SL strength, SL balance so she can complete floor recovery without assistance / chair support. Expect pt to be d/c in 2 visits. Physical Therapy Plan Frequency and Duration Frequency of Treatment Every Other Week Duration of Treatment 6 weeks Plan of Care Start Date 02/23/20 Plan of Care End Date 04/08/20 Next Visit Focus/Plan Next Note Type Treatment Note Next Visit Plan balance training with NBOS with EC, SL stance, obstacle course, hurdles, stair climbing stepper, leg press Plan of Care Dates Plan of Care Start Date 02/23/20 Plan of Care End Date 04/08/20 Electronically Signed by: Calixto Chauhan, PT 02/23/20 [id number] Please Sign and Return: I have reviewed this Plan of Care and certify that the skilled therapy services above are required to meet the patient?s needs. Physician Signature Date Printed Name and Credentials Clinical Instructor Signature Printed Name and Credentials
--- NOTE | 2020-02-23 16:15 | PT.OTN ---
Current Diagnoses Other abnormalities of gait and mobility (02/23/20) Physical Therapy Treatment Note PT-OP-A Visit Information Start: 01/11/20 16:35 Freq: Status: Active Protocol: Document 02/23/20 15:46 HH (Rec: 02/23/20 16:14 [id number]) Out-Patient Physical Therapy Visit Information Visit Information Visit Type Progress Note Visit Start Time 15:16 Visit Stop Time 16:00 Total Visit Minutes 44 Visit Number 4/10 Number of HAND TAPPER Visits 0 PT-OP-B Current Condition Start: 01/11/20 16:35 Freq: Status: Active Protocol: Document 01/11/20 16:36 HH (Rec: 01/11/20 17:07 [email or web address]) Current Condition History of Current Condition Onset Date Jun, 2016 Current Complaints hx of falls, poor balance History of Current Condition Pt is a 79yo female here to improve her balance. Pt stated she had glaucoma surgery in April 2016 who woke up one morning with significant vision loss from infection in June,. Pt is unable to see medial and center field every since then. She stated she could only have blurry vision for lateral visual field but mostly rely on her L eye for guidance. Her main c/ o is poor depth perception and peripheral vision who tends to bump her R side of the body into wall/ obstacles. She also noticed she has to pay close attention on steps height and surrounding obstacles on her R side. Pt has couple falls within the past year but no significant injury noted. She stated her confidence level of balance has been declining and needed to use wall/ support to cruise sometimes for safety. Treatment Goals Patient/Caregiver Goals 1. To improve her overall balance 2. Able to recover from the floor after a fall Prior Functional Status Baseline Function- ADL's Independent Baseline Function- Mobility Independent PT-OP-C Subjective Start: 01/11/20 16:35 Freq: Status: Active Protocol: Document 02/23/20 15:46 HH (Rec: 02/23/20 16:14 [id number]) OP-PT Subjective Patient Comments Patient Comments Im more confident with my balance and strength. I would like to work on how to get up from the floor. Patient Reported Progress Improving PT-OP-D Balance Start: 01/11/20 16:35 Freq: Status: Active Protocol: Document 01/11/20 16:36 HH (Rec: 01/11/20 17:07 [email or web address]) Balance Tests Single Limb Standing Single Limb- Right 2 Single Limb- Left 2 Kaur Balance Assessment Evaluation Sitting to Standing Ability Independent w/out Hands Unsupported Stance Safely- 2 minutes Sitting Unsupported, Feet on Floor Safely- 2 minutes Standing to Sitting Ability Safely, Minimal Hand Use Transfer Ability Safely, Minimal Hand Use Unsupported Stance- Eyes Closed Safely, 10 seconds Unsupported Stance- Eyes Open Independent, 1 minute Reaching Forward Standing Confidently, 10 inches Pick- Up Object From Floor Independent/Safe Look Behind Shoulder - Standing Shifts Weight Well Turning 360 Degrees Turns Bilateral, < 4 secs Unsupported Stance, Alternating Feet on (I)- 8 Steps in > 20 secs Stair Unsupported Tandem Stance Assist to Step-15 seconds Unilateral Leg Stance Lifts Leg/Unable to Hold Total Score Kaur Total Score (out of 56 points) 49 PT-OP-E Functional Tests Start: 01/11/20 16:35 Freq: Status: Active Protocol: Document 01/11/20 16:36 (Rec: 01/11/20 17:07 [email or web address]) Functional Tests Dynamic Gait Index (DGI) Score 21 DGI Impairment Rating 1 to <20% Impaired (Score 20- 23) PT-OP-G Mobility & Gait Start: 01/11/20 16:35 Freq: Status: Active Protocol: Document 01/11/20 16:36 (Rec: 01/11/20 17:07 [email or web address]) Stair Climbing Evaluation Evaluation Level of Assist On Stairs Independent Devices Stair Climbing Assistive Devices Left Railing Technique/Endurance Stair Climbing Direction Ascend and Descend Stair Climbing Technique Step Over Step PT-OP-Q Treatments Start: 01/11/20 16:35 Freq: Status: Active Protocol: Document 02/23/20 15:46 (Rec: 02/23/20 16:14 [id number]) Gym Equipment Shuttle Balance red Comments fwd & Side: WBOS &NBOS EC and EO, no LOb noted. fwd: staggered stance Therapeutic Exercises Standing Exercises lunges Standing Exercise Name with support Side bilateral Reps/Minutes 6x2 step up Standing Exercise Name on bosu ball Equipment Used with grab bar Reps/Minutes 10 x2 Therapeutic Activity Therapeutic Activity floor recovery Reps/Minutes 2 reps Comments cues needed to face directly to the chair in quadruped position, followed by puishing off chair armrests to stand up. Neuro Re-Education Treatment Balance Activities uneven surface Comments on blue and yellow discs without grab bars. but needed occasional min A on back for support PT-OP-T Assessment and Plan Start: 01/11/20 16:35 Freq: Status: Active Protocol: Document 02/23/20 15:46 HH (Rec: 02/23/20 16:14 HH [id number]) Physical Therapy Assessment Goals Single leg stance Impairment pt has 2s for SLS only. Short Term Goal (STG) 10/6 SLS up to 8 seconds Shelter Goal (LTG) Pt will be able to stand on one leg up to 10 seconds to improve SL balance so she can climb stairs, step over obstacle safely. LTG Duration 6 weeks floor recovery Impairment pt stated she is unable to get up from the floor after a fall Short Term Goal (STG) 10/6 pt is able to complete floor recovery with a chair. Shelter Goal (LTG) Pt will improve her B LE strength so she can recover from the floor without assistance/ support in the future LTG Duration 6 weeks dizziness questionnaire Impairment pt scores 38 Short Term Goal (STG) Pt reports she does not have dizziness lately. Shelter Goal (LTG) pt will score >39 on dizziness questionnaire to improve her overall balance, dizziness and confidence level for functional mobility. LTG Duration 6 weeks Progress Towards Goals Progress Towards Goals Progressing Toward Goals Assessment Summary Assessment Pt shows good progress with overall static and dynamic balance. Although her falls/ balance deficits are mostly contributed by her limited L eye vision, pt is able to improve her overall sense of body balance and leg strength to reduce fall risks. Pt will cont benefit from skilled therapy to focus on SL strength, SL balance so she can complete floor recovery without assistance / chair support. Expect pt to be d/c in 2 visits. Physical Therapy Plan Frequency and Duration Frequency of Treatment Every Other Week Duration of Treatment 6 weeks Plan of Care Start Date 02/23/20 Plan of Care End Date 04/08/20 Next Visit Focus/Plan Next Note Type Treatment Note Next Visit Plan balance training with NBOS with EC, SL stance, obstacle course, hurdles, stair climbing stepper, leg press
--- NOTE | 2020-03-10 16:10 | PT.OTN ---
Current Diagnoses Other abnormalities of gait and mobility (03/10/20) Physical Therapy Treatment Note PT-OP-A Visit Information Start: 01/11/20 16:35 Freq: Status: Active Protocol: Document 03/10/20 13:03 (Rec: 03/10/20 13:51 [id number]) Out-Patient Physical Therapy Visit Information Visit Information Visit Type Treatment Note Visit Start Time 13:02 Visit Stop Time 13:45 Total Visit Minutes 43 Visit Number 5/10 Number of RETAIL INVENTORY CONTROL CLERK Visits 0 PT-OP-B Current Condition Start: 01/11/20 16:35 Freq: Status: Active Protocol: Document 01/11/20 16:36 HH (Rec: 01/11/20 17:07 [email or web address]) Current Condition History of Current Condition Onset Date Jun, 2016 Current Complaints hx of falls, poor balance History of Current Condition Pt is a 79yo female here to improve her balance. Pt stated she had glaucoma surgery in April 2016 who woke up one morning with significant vision loss from infection in June,. Pt is unable to see medial and center field every since then. She stated she could only have blurry vision for lateral visual field but mostly rely on her L eye for guidance. Her main c/ o is poor depth perception and peripheral vision who tends to bump her R side of the body into wall/ obstacles. She also noticed she has to pay close attention on steps height and surrounding obstacles on her R side. Pt has couple falls within the past year but no significant injury noted. She stated her confidence level of balance has been declining and needed to use wall/ support to cruise sometimes for safety. Treatment Goals Patient/Caregiver Goals 1. To improve her overall balance 2. Able to recover from the floor after a fall Prior Functional Status Baseline Function- ADL's Independent Baseline Function- Mobility Independent PT-OP-C Subjective Start: 01/11/20 16:35 Freq: Status: Active Protocol: Document 03/10/20 13:03 HH (Rec: 03/10/20 13:51 [id number]) OP-PT Subjective Patient Comments Patient Comments Margaret been practicing lunges and sit to stand without armrests. Patient Reported Progress Improving PT-OP-D Balance Start: 01/11/20 16:35 Freq: Status: Active Protocol: Document 01/11/20 16:36 HH (Rec: 01/11/20 17:07 [email or web address]) Balance Tests Single Limb Standing Single Limb- Right 2 Single Limb- Left 2 Kaur Balance Assessment Evaluation Sitting to Standing Ability Independent w/out Hands Unsupported Stance Safely- 2 minutes Sitting Unsupported, Feet on Floor Safely- 2 minutes Standing to Sitting Ability Safely, Minimal Hand Use Transfer Ability Safely, Minimal Hand Use Unsupported Stance- Eyes Closed Safely, 10 seconds Unsupported Stance- Eyes Open Independent, 1 minute Reaching Forward Standing Confidently, 10 inches Pick- Up Object From Floor Independent/Safe Look Behind Shoulder - Standing Shifts Weight Well Turning 360 Degrees Turns Bilateral, < 4 secs Unsupported Stance, Alternating Feet on (I)- 8 Steps in > 20 secs Stair Unsupported Tandem Stance Assist to Step-15 seconds Unilateral Leg Stance Lifts Leg/Unable to Hold Total Score Kaur Total Score (out of 56 points) 49 PT-OP-E Functional Tests Start: 01/11/20 16:35 Freq: Status: Active Protocol: Document 01/11/20 16:36 (Rec: 01/11/20 17:07 [email or web address]) Functional Tests Dynamic Gait Index (DGI) Score 21 DGI Impairment Rating 1 to <20% Impaired (Score 20- 23) PT-OP-G Mobility & Gait Start: 01/11/20 16:35 Freq: Status: Active Protocol: Document 01/11/20 16:36 (Rec: 01/11/20 17:07 [email or web address]) Stair Climbing Evaluation Evaluation Level of Assist On Stairs Independent Devices Stair Climbing Assistive Devices Left Railing Technique/Endurance Stair Climbing Direction Ascend and Descend Stair Climbing Technique Step Over Step PT-OP-Q Treatments Start: 01/11/20 16:35 Freq: Status: Active Protocol: Document 03/10/20 13:03 (Rec: 03/10/20 13:51 [id number]) Therapeutic Exercises Standing Exercises step up Standing Exercise Name 6inces step Equipment Used with grab bar Reps/Minutes 10 x2 Therapeutic Activity Therapeutic Activity floor recovery Reps/Minutes 2 reps Comments pt completed twice. cues needed to face directly to the chair in quadruped position, followed by puishing off chair armrests to stand up. obstacle course Name for depth perception Comments golf balls pick ups with R eye closed for 3 rounds, then L eye closed for 2 rounds. Pt overshoot and decreased accurary with L eye closed. She also has difficulty identifying dark colored cones . Neuro Re-Education Treatment Balance Activities blue foam Reps/Duration 2 min Comments with side to side head turns, eyes closed. uneven surface Reps/Duration 1 min x2 Comments on blue and yellow discs without grab bars. but needed occasional min A on back for support. Progressed to eyes closed. SLS Surface ground level Equipment next to bar Comments up to 15-21 s on either side. reactive balance Details EC Surface ground then blue foam Reps/Duration 5 mins Comments static stance then PT provided perturbations. no LOB noted. PT-OP-T Assessment and Plan Start: 01/11/20 16:35 Freq: Status: Active Protocol: Document 03/10/20 13:03 (Rec: 03/10/20 13:51 [id number]) Physical Therapy Assessment Goals Single leg stance Impairment pt has 2s for SLS only. Short Term Goal (STG) 10/6 SLS up to 8 seconds Care Home Goal (LTG) Pt will be able to stand on one leg up to 10 seconds to improve SL balance so she can climb stairs, step over obstacle safely. LTG Duration 6 weeks floor recovery Impairment pt stated she is unable to get up from the floor after a fall Short Term Goal (STG) 10/6 pt is able to complete floor recovery with a chair. Bean Picker Machine Operator Goal (LTG) Pt will improve her B LE strength so she can recover from the floor without assistance/ support in the future LTG Duration 6 weeks dizziness questionnaire Impairment pt scores 38 Short Term Goal (STG) Pt reports she does not have dizziness lately. Care Home Goal (LTG) pt will score >39 on dizziness questionnaire to improve her overall balance, dizziness and confidence level for functional mobility. LTG Duration 6 weeks Assessment Summary Assessment Pt progress well and able to complete floor recovery twice independently. Her SLS increases to 15-21 s on each side. will d/c pt after next visit. Physical Therapy Plan Frequency and Duration Frequency of Treatment Every Other Week Duration of Treatment 6 weeks Plan of Care Start Date 02/23/20 Plan of Care End Date 04/08/20 Next Visit Focus/Plan Next Note Type Treatment Note Next Visit Plan balance training with NBOS with EC, SL stance, obstacle course, hurdles, stair climbing stepper, leg press
--- NOTE | 2020-03-21 16:22 | PT.OPDS ---
Current Diagnoses Other abnormalities of gait and mobility (03/21/20) Visit Care Team Role Provider Type Lilian Whitehead DO Attending Provider Physician Family Provider Primary Care Provider Referring Provider Specialty: Family Practice Address: [address] [place] [address], [place], [place], [facility] Email: [email or web address] Visit Number Visit Number 10/27 Discharge Summary PT-OP-B Current Condition Start: 01/11/20 16:35 Freq: Status: Active Protocol: Document 01/11/20 16:36 HH (Rec: 01/11/20 17:07 [email or web address]) Current Condition History of Current Condition Onset Date Jun, 2016 Current Complaints hx of falls, poor balance History of Current Condition Pt is a 79yo female here to improve her balance. Pt stated she had glaucoma surgery in April 2016 who woke up one morning with significant vision loss from infection in June,. Pt is unable to see medial and center field every since then. She stated she could only have blurry vision for lateral visual field but mostly rely on her L eye for guidance. Her main c/ o is poor depth perception and peripheral vision who tends to bump her R side of the body into wall/ obstacles. She also noticed she has to pay close attention on steps height and surrounding obstacles on her R side. Pt has couple falls within the past year but no significant injury noted. She stated her confidence level of balance has been declining and needed to use wall/ support to cruise sometimes for safety. Treatment Goals Patient/Caregiver Goals 1. To improve her overall balance 2. Able to recover from the floor after a fall Prior Functional Status Baseline Function- ADL's Independent Baseline Function- Mobility Independent PT-OP-C Subjective Start: 01/11/20 16:35 Freq: Status: Active Protocol: Document 03/21/20 15:20 HH (Rec: 03/21/20 16:10 HH [id number]) OP-PT Subjective Patient Comments Patient Comments Im doing pretty good so far. Im ready to graduate! Patient Reported Progress Improving PT-OP-D Balance Start: 01/11/20 16:35 Freq: Status: Active Protocol: Document 01/11/20 16:36 HH (Rec: 01/11/20 17:07 [email or web address]) Balance Tests Single Limb Standing Single Limb- Right 2 Single Limb- Left 2 Kaur Balance Assessment Evaluation Sitting to Standing Ability Independent w/out Hands Unsupported Stance Safely- 2 minutes Sitting Unsupported, Feet on Floor Safely- 2 minutes Standing to Sitting Ability Safely, Minimal Hand Use Transfer Ability Safely, Minimal Hand Use Unsupported Stance- Eyes Closed Safely, 10 seconds Unsupported Stance- Eyes Open Independent, 1 minute Reaching Forward Standing Confidently, 10 inches Pick- Up Object From Floor Independent/Safe Look Behind Shoulder - Standing Shifts Weight Well Turning 360 Degrees Turns Bilateral, < 4 secs Unsupported Stance, Alternating Feet on (I)- 8 Steps in > 20 secs Stair Unsupported Tandem Stance Assist to Step-15 seconds Unilateral Leg Stance Lifts Leg/Unable to Hold Total Score Kaur Total Score (out of 56 points) 49 PT-OP-E Functional Tests Start: 01/11/20 16:35 Freq: Status: Active Protocol: Document 01/11/20 16:36 (Rec: 01/11/20 17:07 [email or web address]) Functional Tests Dynamic Gait Index (DGI) Score 21 DGI Impairment Rating 1 to <20% Impaired (Score 20- 23) PT-OP-G Mobility & Gait Start: 01/11/20 16:35 Freq: Status: Active Protocol: Document 01/11/20 16:36 (Rec: 01/11/20 17:07 [email or web address]) Stair Climbing Evaluation Evaluation Level of Assist On Stairs Independent Devices Stair Climbing Assistive Devices Left Railing Technique/Endurance Stair Climbing Direction Ascend and Descend Stair Climbing Technique Step Over Step PT-OP-T Assessment and Plan Start: 01/11/20 16:35 Freq: Status: Active Protocol: Document 03/21/20 15:20 HH (Rec: 03/21/20 16:10 [id number]) Physical Therapy Assessment Goals Single leg stance Impairment pt has 2s for SLS only. Short Term Goal (STG) 10/6 SLS up to 8 seconds Retirement Goal (LTG) 11/2 goal met R SLS = 10-12 seconds L SLS= 10 s at best, averagea 5-8 s LTG Duration 6 weeks floor recovery Impairment pt stated she is unable to get up from the floor after a fall Short Term Goal (STG) 10/6 goal met pt is able to complete floor recovery with a chair. Washer Cutter Goal (LTG) Pt will improve her B LE strength so she can recover from the floor without assistance/ support in the future LTG Duration 6 weeks dizziness questionnaire Impairment pt scores 38 Short Term Goal (STG) Pt reports she does not have dizziness lately. Retirement Goal (LTG) 03/21 goal met pt score 44 on dizziness questionnaire to improve her overall balance, dizziness and confidence level for functional mobility. LTG Duration 6 weeks Progress Towards Goals Progress Towards Goals Goals Met Assessment Summary Assessment Pt overall progressed well and has good understanding of her decreased balance d/t limited vision from her R eye. Pt has learned compensatory strategies and has gained enough strength to complete floor recovery. D/c from therapy today. Physical Therapy Plan Discharge Physical Therapy Discharge Reasons Goals Met
== END 2020-03-28 15:19 ==
LOC: PHYS 15:15
PROVIDERS: Family Provider Family Medicine; PCP Family Medicine; Referring Provider Family Medicine; Visit Provider Family Medicine
DX: R26.89 Other abnormalities of gait and mobility (principal)
CPT/HCPCS: 97110; 97112; 97161; 97530; 97535

== ENCOUNTER → 2020-06-17 08:58 | Outpatient (CLI) | payer MEDICARE, SELFPAY ==
[2019-08-24 15:10] VITALS: BMI 28.5
[2020-06-17] MEDS: COVID-19 VACC #1, MRNA(MOD) 100 MCG/0.5 ML VIAL IM (09:08)
== END ==
PROVIDERS: Family Provider Family Medicine; PCP Family Medicine; Visit Provider Internal Medicine
DX: Z23 Encounter for immunization (principal)
CPT/HCPCS: 0011A; 91301

== ENCOUNTER → 2020-07-15 11:17 | Outpatient (CLI) | payer MEDICARE, SELFPAY ==
[2019-08-24 15:10] VITALS: BMI 28.5
[2020-07-15] MEDS: COVID-19 VACC #2, MRNA(MOD) 100 MCG/0.5 ML VIAL IM (11:22)
== END ==
PROVIDERS: Family Provider Family Medicine; PCP Family Medicine; Visit Provider Internal Medicine
DX: Z23 Encounter for immunization (principal)
CPT/HCPCS: 0012A; 91301

== ENCOUNTER → 2020-12-16 10:13 | Outpatient (CLI) | payer MEDICARE, SELFPAY ==
[2019-08-24 15:10] VITALS: BMI 28.5
--- NOTE | 2020-12-16 10:16 | DI.MG.S_ITS ---
BILATERAL DIGITAL SCREENING MAMMOGRAM 3D/2D WITH CAD POST LUMPECTOMY: 12/16/2020 CLINICAL: Routine screening. Personal history of right breast cancer. Family history of breast cancer. Comparison is made to exams dated: 12/16/2019 mammogram, 11/04/2018 mammogram, 10/31/2017 mammogram, and 04/09/2016 mammogram - [facility]. The tissue of both breasts is heterogeneously dense. This may lower the sensitivity of mammography. Current study was also evaluated with a Computer Aided Detection (CAD) system. There are benign post operative findings in the right breast. No significant masses, calcifications, or other findings are seen in either breast. There has been no significant interval change. IMPRESSION: BENIGN There is no mammographic evidence of malignancy. A 1 year screening mammogram is recommended. This exam was interpreted at Station ID: [id number]. NOTE: For mammograms, a report in lay terms will be sent to the patient. Approximately 15% of breast malignancies will not be visualized mammographically. In the management of a palpable breast mass, a negative mammogram must not discourage biopsy of a clinically suspicious lesion. Electronically Signed By: Jim blair/cristian:12/16/2020 15:19:53 copy to: Maeve Araiza letter sent: Normal Exam ACR BI-RADS Category 2: Benign Finding(s) [id number]
== END ==
PROVIDERS: Family Provider Family Medicine; PCP Family Medicine; Referring Provider Internal Medicine; Visit Provider Internal Medicine
DX: Z12.31 Encounter for screening mammogram for malignant neoplasm of breast (principal); C50.411 Malignant neoplasm of upper-outer quadrant of right female breast; Z17.0 Estrogen receptor positive status [ER+]; Z80.3 Family history of malignant neoplasm of breast
CPT/HCPCS: 77063; 77067

== ENCOUNTER → 2021-02-13 13:09 | Outpatient (CLI) | payer MEDICARE, SELFPAY ==
[2019-08-24 15:10] VITALS: BMI 28.5
[2021-02-13 13:52] LABS: COVID19 -Nasal RAPID Negative (Negative)
== END ==
PROVIDERS: Family Provider Family Medicine; PCP Family Medicine; Visit Provider Nurse Practitioner Family
DX: Z20.822 Contact with and (suspected) exposure to COVID-19 (principal)
CPT/HCPCS: 87635

== ENCOUNTER → 2021-03-31 15:16 | Outpatient (CLI) | payer MEDICARE, SELFPAY ==
[2019-08-24 15:10] VITALS: BMI 28.5
[2021-03-31] MEDS: COVID-19 VACC #3, MRNA(MOD) 50 MCG/0.25 ML VIAL IM (15:20)
== END ==
PROVIDERS: Family Provider Family Medicine; PCP Family Medicine; Visit Provider Internal Medicine
DX: Z23 Encounter for immunization (principal)
CPT/HCPCS: 0013A; 91301

== ENCOUNTER 2021-04-21 10:30 | Outpatient (RCR) | payer MEDICARE, SELFPAY ==
[2019-08-24 15:10] VITALS: BMI 28.5
--- NOTE | 2021-01-26 16:41 | PT.OIE ---
Current Diagnoses Pain in left shoulder (01/26/21) Cervicalgia (01/26/21) Dorsalgia, unspecified (01/26/21) Past Medical History (Last Reviewed 12/20/20 @ 09:40 by Lilian Whitehead DO) Adult situational stress disorder (08/03/15) Alcohol use Cataracts, bilateral Chicken pox Chronic obstructive pulmonary disease (06/08/15) Cobalamin deficiency (12/26/10) Colon polyps Essential hypertension (04/15/12) Glaucoma (03/27/13) Glucose intolerance Hemorrhoid (~2004) History of adenomatous polyp of colon Hyperlipidemia Malignant neoplasm of upper-outer quadrant of right breast in female, estrogen receptor positive (11/02/16) Measles S/P right mastectomy Seborrheic keratosis Sleep apnea (~1994) Stage 3 chronic kidney disease (09/10/14) Past Surgical History (Last Reviewed 12/20/20 @ 09:40 by Lilian Whitehead DO) History of lithotripsy (~1986) Perirectal abscess (~1957) Pilonidal cyst (~1959) S/P right mastectomy Visit Care Team Role Provider Type Lilian Whitehead DO Attending Provider Physician Family Provider Primary Care Provider Referring Provider Specialty: Family Practice Address: [address] [place] [address], [facility] Email: [email or web address] Physical Therapy Initial Evaluation PT-OP-A Visit Information Start: 01/16/21 08:12 Freq: Status: Active Protocol: Document 01/26/21 13:00 AMB (Rec: 01/27/21 16:23 AMB [email or web address]) Out-Patient Physical Therapy Visit Information Visit Information Visit Type Initial Evaluation Visit Start Time 13:00 Visit Stop Time 13:45 Total Visit Minutes 45 Visit Number 1 PT-OP-B Current Condition Start: 01/16/21 08:12 Freq: Status: Active Protocol: Document 01/26/21 13:02 AMB (Rec: 01/26/21 13:14 AMB [id number]) Current Condition History of Current Condition Onset Date 4 months ago Current Complaints L neck/shoulder pain, chronic LBP History of Current Condition 3-4 months, woke up with a stiff neck. Sleeping on the left shoulder is painful. Difficulty with looking behind while parking due to restricted cervical rotation which is important because (R eye diminished vision for 5 years). Pt reports 1-2 falls in the last 6 months. Chronic low back pain with standing for 15 minutes- more chronic. Pain has been staying the same since onset. Pt is caregiver for adult with Down Syndrome. Treatment Goals Patient/Caregiver Goals Reduce L shoulder/neck/LBP. LBP limits standing, neck pain limits rotation and looking up after looking down, shoulder limits sleeping. Prior Functional Status Baseline Function- ADL's Independent Baseline Function- Mobility Independent Current Functional Impairments (Reported) Functional Limitations- ADL's Impaired cervical rotation, sleeping, standing as above PT-OP-C Subjective Start: 01/16/21 08:12 Freq: Status: Active Protocol: Document 01/26/21 13:00 AMB (Rec: 01/27/21 16:23 AMB [email or web address]) Patient Questionnaires Neck Disability Index NDI Score 9 Neck Disability Index Impairment 1 to 19% Impaired (Score 1-9) OP-PT Pain Assessment Comments Pain Comments 5/10 LBP, 5/10 Left shoulder PT-OP-J Posture/Palpation/Skin Start: 01/16/21 08:12 Freq: Status: Active Protocol: Document 01/26/21 13:00 AMB (Rec: 01/27/21 16:24 AMB [email or web address]) Palpation Assessment Location One Palpation Location L neck/shoulder Palpation Findings Soft Tissue Tightness,Spasm, Muscle Guarding,Tenderness PT-OP-K Range of Motion Start: 01/16/21 08:12 Freq: Status: Active Protocol: Document 01/26/21 13:00 AMB (Rec: 01/27/21 16:23 AMB [email or web address]) Cervical Spine Range of Motion Cervical Spine Active Degrees Testing Position Sitting Flexion 50 Extension 25 Rotation Left 45 Rotation Right 50 Lateral Flexion Left 25 Lateral Flexion Right 28 Comments pain coming up from flexion, with with left rotation Shoulder Goniometric Range of Motion Shoulder Left Passive Flexion 140 Abduction 120 External Rotation at 90 degrees 30 Abduction Left Active Testing Position Sitting Flexion 132 Abduction 120 Right Active Testing Position Sitting Flexion 156 Abduction 180 PT-OP-T Assessment and Plan Start: 01/16/21 08:12 Freq: Status: Active Protocol: Document 01/26/21 13:00 AMB (Rec: 01/27/21 16:41 AMB [email or web address]) Physical Therapy Assessment Rehab Potential Rehabilitation Potential Good Evaluation Complexity Number of Personal Factors/Comorbidities 0 Number of Body Systems Impaired 4 or More Clinical Presentation at Evaluation Stable Impairments Impairments Activity Tolerance,Pain, Posture,ROM,Soft Tissue Mobility Goals Three Impairment Shoulder pain Short Term Goal (STG) Doreen will improe her left shoulder flexion arom to 150 degrees. STG Duration 4 weeks Fpc Goal (LTG) Doreen will sleep on her left shoulder without an increase in her baseline pain. LTG Duration 8 weeks Two Impairment Cervical rotation Short Term Goal (STG) Doreen will improve her cervical rotation arom to 60 degrees bilaterally. STG Duration 4 weeks Screenplay Writer Goal (LTG) Doreen will rotate her head to check her blind spot without an increase in her baseline pain. 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 STG Duration 4 weeks Assessment Summary Assessment Doreen attends physical therapy with chronic low back pain and her main complaint of recent onset left shoulder and cervical pain. She has pain when coming up from cervical flexion and cervical rotation and has limited left shoulder strength and range of motion. We will focus on the neck and shoulder dysfunction first, and then progress to core stabilization and postural re- education for her low back. Physical Therapy Plan Frequency and Duration Frequency of Treatment 2x/Week Duration of Treatment 8 weeks Plan of Care Start Date 01/25/21 Plan of Care End Date 03/23/21 Therapeutic Interventions Therapeutic Interventions Home Exercise Program,Joint Mobilizations,Manual Therapy, Neuromuscular Re-education, Self-Care/Home Management, Therapeutic Activities, Therapeutic Exercises Next Visit Focus/Plan Next Note Type Treatment Note
--- NOTE | 2021-01-26 16:41 | PT.OPPOC ---
Physical, Occupational & Speech Therapy At [facility] Current Diagnoses Pain in left shoulder (01/26/21) Cervicalgia (01/26/21) Dorsalgia, unspecified (01/26/21) Visit Care Team Role Provider Type Lilian Whitehead DO Attending Provider Physician Family Provider Primary Care Provider Referring Provider Specialty: Family Practice Address: [address] [place] [address], [place], [place], [facility] Email: [email or web address] Plan Of Care PT-OP-T Assessment and Plan Start: 01/16/21 08:12 Freq: Status: Active Protocol: Document 01/26/21 13:00 AMB (Rec: 01/27/21 16:41 AMB [email or web address]) Physical Therapy Assessment Rehab Potential Rehabilitation Potential Good Evaluation Complexity Number of Personal Factors/Comorbidities 0 Number of Body Systems Impaired 4 or More Clinical Presentation at Evaluation Stable Impairments Impairments Activity Tolerance,Pain, Posture,ROM,Soft Tissue Mobility Goals Three Impairment Shoulder pain Short Term Goal (STG) Doreen will improe her left shoulder flexion arom to 150 degrees. STG Duration 4 weeks [facility] Goal (LTG) Doreen will sleep on her left shoulder without an increase in her baseline pain. LTG Duration 8 weeks Two Impairment Cervical rotation Short Term Goal (STG) Doreen will improve her cervical rotation arom to 60 degrees bilaterally. STG Duration 4 weeks [facility] Goal (LTG) Doreen will rotate her head to check her blind spot without an increase in her baseline pain. 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 STG Duration 4 weeks Assessment Summary Assessment Doreen attends physical therapy with chronic low back pain and her main complaint of recent onset left shoulder and cervical pain. She has pain when coming up from cervical flexion and cervical rotation and has limited left shoulder strength and range of motion. We will focus on the neck and shoulder dysfunction first, and then progress to core stabilization and postural re- education for her low back. Physical Therapy Plan Frequency and Duration Frequency of Treatment 2x/Week Duration of Treatment 8 weeks Plan of Care Start Date 01/25/21 Plan of Care End Date 03/23/21 Therapeutic Interventions Therapeutic Interventions Home Exercise Program,Joint Mobilizations,Manual Therapy, Neuromuscular Re-education, Self-Care/Home Management, Therapeutic Activities, Therapeutic Exercises Next Visit Focus/Plan Next Note Type Treatment Note Plan of Care Dates Plan of Care Start Date 01/25/21 Plan of Care End Date 03/23/21 Electronically Signed by: Sarah Peña, PT 01/27/21 [id number] Please Sign and Return: I have reviewed this Plan of Care and certify that the skilled therapy services above are required to meet the patient?s needs. Physician Signature Date Printed Name and Credentials Clinical Instructor Signature Printed Name and Credentials
--- NOTE | 2021-01-30 16:00 | PT.OTN ---
Current Diagnoses Pain in left shoulder (01/30/21) Cervicalgia (01/30/21) Dorsalgia, unspecified (01/30/21) Physical Therapy Treatment Note PT-OP-A Visit Information Start: 01/16/21 08:12 Freq: Status: Active Protocol: Document 01/30/21 10:32 AMB (Rec: 01/30/21 11:18 AMB [id number]) Out-Patient Physical Therapy Visit Information Visit Information Visit Type Treatment Note Visit Start Time 10:30 Visit Stop Time 11:15 Total Visit Minutes 45 Visit Number 2 PT-OP-B Current Condition Start: 01/16/21 08:12 Freq: Status: Active Protocol: Document 01/26/21 13:02 AMB (Rec: 01/26/21 13:14 AMB [id number]) Current Condition History of Current Condition Onset Date 4 months ago Current Complaints L neck/shoulder pain, chronic LBP History of Current Condition 3-4 months, woke up with a stiff neck. Sleeping on the left shoulder is painful. Difficulty with looking behind while parking due to restricted cervical rotation which is important because (R eye diminished vision for 5 years). Pt reports 1-2 falls in the last 6 months. Chronic low back pain with standing for 15 minutes- more chronic. Pain has been staying the same since onset. Pt is caregiver for adult with Down Syndrome. Treatment Goals Patient/Caregiver Goals Reduce L shoulder/neck/LBP. LBP limits standing, neck pain limits rotation and looking up after looking down, shoulder limits sleeping. Prior Functional Status Baseline Function- ADL's Independent Baseline Function- Mobility Independent Current Functional Impairments (Reported) Functional Limitations- ADL's Impaired cervical rotation, sleeping, standing as above PT-OP-C Subjective Start: 01/16/21 08:12 Freq: Status: Active Protocol: Document 01/30/21 10:30 AMB (Rec: 01/30/21 16:00 AMB [email or web address]) OP-PT Subjective Patient Comments Patient Comments Doreen is feeling about the same . Pain with sleeping. PT-OP-J Posture/Palpation/Skin Start: 01/16/21 08:12 Freq: Status: Active Protocol: Document 01/26/21 13:00 AMB (Rec: 01/27/21 16:24 AMB [email or web address]) Palpation Assessment Location One Palpation Location L neck/shoulder Palpation Findings Soft Tissue Tightness,Spasm, Muscle Guarding,Tenderness PT-OP-K Range of Motion Start: 01/16/21 08:12 Freq: Status: Active Protocol: Document 01/26/21 13:00 AMB (Rec: 01/27/21 16:23 AMB [email or web address]) Cervical Spine Range of Motion Cervical Spine Active Degrees Testing Position Sitting Flexion 50 Extension 25 Rotation Left 45 Rotation Right 50 Lateral Flexion Left 25 Lateral Flexion Right 28 Comments pain coming up from flexion, with with left rotation Shoulder Goniometric Range of Motion Shoulder Left Passive Flexion 140 Abduction 120 External Rotation at 90 degrees 30 Abduction Left Active Testing Position Sitting Flexion 132 Abduction 120 Right Active Testing Position Sitting Flexion 156 Abduction 180 PT-OP-Q Treatments Start: 01/16/21 08:12 Freq: Status: Active Protocol: Document 01/30/21 10:30 AMB (Rec: 01/30/21 16:00 AMB [email or web address]) Therapeutic Exercises Sitting Exercises 2 Sitting Exercise Name shoulder circles Side bilateral Reps/Minutes 10 1 Sitting Exercise Name UT stretch Side left Reps/Minutes 30x2 Manual Therapy Treatment Soft Tissue Mobilization 1 Body Location UT, lev scap, Mobilization Type Myofascial Release,Sustained Pressure,Trigger Point Release Intensity/Depth Moderate Body Position Hooklying Comments left Joint Mobilizations 1 Joint C4-C6 Direction UPA Grade II Body Position Hooklying PT-OP-R Modalities Start: 01/16/21 08:12 Freq: Status: Active Protocol: Document 01/30/21 10:30 AMB (Rec: 01/30/21 16:00 AMB [email or web address]) Electric Stimulation Electric Stimulation Interferential Current (IFC) Body Location L neck/shoulder Duration (Minutes) 15 Patient Position Hooklying Combined With Heat/Cold Hot Pack PT-OP-T Assessment and Plan Start: 01/16/21 08:12 Freq: Status: Active Protocol: Document 01/30/21 10:30 AMB (Rec: 01/30/21 13:03 AMB [email or web address]) Physical Therapy Assessment Goals Three Impairment Shoulder pain Short Term Goal (STG) Doreen will improe her left shoulder flexion arom to 150 degrees. STG Duration 4 weeks Correction Goal (LTG) Doreen will sleep on her left shoulder without an increase in her baseline pain. LTG Duration 8 weeks Two Impairment Cervical rotation Short Term Goal (STG) Doreen will improve her cervical rotation arom to 60 degrees bilaterally. STG Duration 4 weeks Correction Goal (LTG) Doreen will rotate her head to check her blind spot without an increase in her baseline pain. 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 STG Duration 4 weeks Assessment Summary Assessment Doreen had L>R levator scap tightness that did respond well to manual therapy. Tried MWM but pt's shoulder pain limited this. Will need to do more shoulder strengthening to reduce over recruitment of UT. Physical Therapy Plan Next Visit Focus/Plan Next Note Type Treatment Note Next Visit Plan Reassess levator scap stretch and shoulder rolls, initiate shoulder HEP
--- NOTE | 2021-02-01 13:05 | PT.OTN ---
Current Diagnoses Pain in left shoulder (02/01/21) Cervicalgia (02/01/21) Dorsalgia, unspecified (02/01/21) Physical Therapy Treatment Note PT-OP-A Visit Information Start: 01/16/21 08:12 Freq: Status: Active Protocol: Document 02/01/21 10:31 AMB (Rec: 02/01/21 11:15 AMB [id number]) Out-Patient Physical Therapy Visit Information Visit Information Visit Type Treatment Note Visit Start Time 10:30 Visit Stop Time 11:10 Total Visit Minutes 40 Visit Number 3 PT-OP-B Current Condition Start: 01/16/21 08:12 Freq: Status: Active Protocol: Document 01/26/21 13:02 AMB (Rec: 01/26/21 13:14 AMB [id number]) Current Condition History of Current Condition Onset Date 4 months ago Current Complaints L neck/shoulder pain, chronic LBP History of Current Condition 3-4 months, woke up with a stiff neck. Sleeping on the left shoulder is painful. Difficulty with looking behind while parking due to restricted cervical rotation which is important because (R eye diminished vision for 5 years). Pt reports 1-2 falls in the last 6 months. Chronic low back pain with standing for 15 minutes- more chronic. Pain has been staying the same since onset. Pt is caregiver for adult with Down Syndrome. Treatment Goals Patient/Caregiver Goals Reduce L shoulder/neck/LBP. LBP limits standing, neck pain limits rotation and looking up after looking down, shoulder limits sleeping. Prior Functional Status Baseline Function- ADL's Independent Baseline Function- Mobility Independent Current Functional Impairments (Reported) Functional Limitations- ADL's Impaired cervical rotation, sleeping, standing as above PT-OP-C Subjective Start: 01/16/21 08:12 Freq: Status: Active Protocol: Document 02/01/21 10:30 AMB (Rec: 02/01/21 13:03 AMB [email or web address]) OP-PT Subjective Patient Comments Patient Comments Pt notes decreased pain for a couple of hours after last visit. PT-OP-J Posture/Palpation/Skin Start: 01/16/21 08:12 Freq: Status: Active Protocol: Document 01/26/21 13:00 AMB (Rec: 01/27/21 16:24 AMB [email or web address]) Palpation Assessment Location One Palpation Location L neck/shoulder Palpation Findings Soft Tissue Tightness,Spasm, Muscle Guarding,Tenderness PT-OP-K Range of Motion Start: 01/16/21 08:12 Freq: Status: Active Protocol: Document 01/26/21 13:00 AMB (Rec: 01/27/21 16:23 AMB [email or web address]) Cervical Spine Range of Motion Cervical Spine Active Degrees Testing Position Sitting Flexion 50 Extension 25 Rotation Left 45 Rotation Right 50 Lateral Flexion Left 25 Lateral Flexion Right 28 Comments pain coming up from flexion, with with left rotation Shoulder Goniometric Range of Motion Shoulder Left Passive Flexion 140 Abduction 120 External Rotation at 90 degrees 30 Abduction Left Active Testing Position Sitting Flexion 132 Abduction 120 Right Active Testing Position Sitting Flexion 156 Abduction 180 PT-OP-Q Treatments Start: 01/16/21 08:12 Freq: Status: Active Protocol: Document 02/01/21 10:30 AMB (Rec: 02/01/21 13:02 AMB [email or web address]) Therapeutic Exercises Supine Exercises prom Comments shoulder flexion, abd with ER Sitting Exercises 3 Sitting Exercise Name pulleys Comments flexion 1 Sitting Exercise Name UT stretch Side left Reps/Minutes 30x2 Manual Therapy Treatment Soft Tissue Mobilization 1 Body Location UT, lev scap, Mobilization Type Myofascial Release,Sustained Pressure,Trigger Point Release Intensity/Depth Moderate Body Position Hooklying Comments left Joint Mobilizations 1 Joint C4-C6 Direction UPA Grade II Body Position Hooklying Manual Traction Cervical Body Position Hooklying Reps/Duration 30x4 PT-OP-R Modalities Start: 01/16/21 08:12 Freq: Status: Active Protocol: Document 01/30/21 10:30 AMB (Rec: 01/30/21 16:00 AMB [email or web address]) Electric Stimulation Electric Stimulation Interferential Current (IFC) Body Location L neck/shoulder Duration (Minutes) 15 Patient Position Hooklying Combined With Heat/Cold Hot Pack PT-OP-T Assessment and Plan Start: 01/16/21 08:12 Freq: Status: Active Protocol: Document 02/01/21 10:31 AMB (Rec: 02/01/21 11:15 AMB [id number]) Physical Therapy Assessment Assessment Summary Assessment Doreen responded well to pulleys . Instructed in theracane, continue to instruct in gentle PROm for shoulder and neck. Discussed posture, using purse and how that increases UT activation on the left. Physical Therapy Plan Next Visit Focus/Plan Next Note Type Treatment Note Next Visit Plan Written HEP next visit
--- NOTE | 2021-02-06 15:56 | PT.OTN ---
Current Diagnoses Pain in left shoulder (02/06/21) Cervicalgia (02/06/21) Dorsalgia, unspecified (02/06/21) Physical Therapy Treatment Note PT-OP-A Visit Information Start: 01/16/21 08:12 Freq: Status: Active Protocol: Document 02/06/21 14:30 AMB (Rec: 02/06/21 15:56 AMB [email or web address]) Out-Patient Physical Therapy Visit Information Visit Information Visit Type Treatment Note Visit Start Time 14:30 Visit Stop Time 15:25 Total Visit Minutes 55 Visit Number 4 PT-OP-B Current Condition Start: 01/16/21 08:12 Freq: Status: Active Protocol: Document 01/26/21 13:02 AMB (Rec: 01/26/21 13:14 AMB [id number]) Current Condition History of Current Condition Onset Date 4 months ago Current Complaints L neck/shoulder pain, chronic LBP History of Current Condition 3-4 months, woke up with a stiff neck. Sleeping on the left shoulder is painful. Difficulty with looking behind while parking due to restricted cervical rotation which is important because (R eye diminished vision for 5 years). Pt reports 1-2 falls in the last 6 months. Chronic low back pain with standing for 15 minutes- more chronic. Pain has been staying the same since onset. Pt is caregiver for adult with Down Syndrome. Treatment Goals Patient/Caregiver Goals Reduce L shoulder/neck/LBP. LBP limits standing, neck pain limits rotation and looking up after looking down, shoulder limits sleeping. Prior Functional Status Baseline Function- ADL's Independent Baseline Function- Mobility Independent Current Functional Impairments (Reported) Functional Limitations- ADL's Impaired cervical rotation, sleeping, standing as above PT-OP-C Subjective Start: 01/16/21 08:12 Freq: Status: Active Protocol: Document 02/06/21 14:30 AMB (Rec: 02/06/21 15:56 AMB [email or web address]) OP-PT Subjective Patient Comments Patient Comments Pt is noticing more cervical mobility, back and shoulder are about the same PT-OP-J Posture/Palpation/Skin Start: 01/16/21 08:12 Freq: Status: Active Protocol: Document 01/26/21 13:00 AMB (Rec: 01/27/21 16:24 AMB [email or web address]) Palpation Assessment Location One Palpation Location L neck/shoulder Palpation Findings Soft Tissue Tightness,Spasm, Muscle Guarding,Tenderness PT-OP-K Range of Motion Start: 01/16/21 08:12 Freq: Status: Active Protocol: Document 01/26/21 13:00 AMB (Rec: 01/27/21 16:23 AMB [email or web address]) Cervical Spine Range of Motion Cervical Spine Active Degrees Testing Position Sitting Flexion 50 Extension 25 Rotation Left 45 Rotation Right 50 Lateral Flexion Left 25 Lateral Flexion Right 28 Comments pain coming up from flexion, with with left rotation Shoulder Goniometric Range of Motion Shoulder Left Passive Flexion 140 Abduction 120 External Rotation at 90 degrees 30 Abduction Left Active Testing Position Sitting Flexion 132 Abduction 120 Right Active Testing Position Sitting Flexion 156 Abduction 180 PT-OP-Q Treatments Start: 01/16/21 08:12 Freq: Status: Active Protocol: Document 02/06/21 14:30 AMB (Rec: 02/06/21 15:56 AMB [email or web address]) Therapeutic Exercises Supine Exercises prom Comments shoulder flexion, abd with ER Sitting Exercises 2 Sitting Exercise Name chin tuck Reps/Minutes 10x5 1 Sitting Exercise Name UT stretch Side left Reps/Minutes 30x2 Manual Therapy Treatment Soft Tissue Mobilization 1 Body Location UT, lev scap, Mobilization Type Myofascial Release,Sustained Pressure,Trigger Point Release Intensity/Depth Moderate Body Position Hooklying Comments left Joint Mobilizations 1 Joint C4-C6 Direction UPA Grade II Body Position Hooklying Manual Traction Cervical Body Position Hooklying Reps/Duration 30x4 PT-OP-R Modalities Start: 01/16/21 08:12 Freq: Status: Active Protocol: Document 02/06/21 14:30 AMB (Rec: 02/06/21 15:56 AMB [email or web address]) Electric Stimulation Electric Stimulation Interferential Current (IFC) Body Location L neck/shoulder Duration (Minutes) 15 Patient Position Hooklying Combined With Heat/Cold Hot Pack PT-OP-T Assessment and Plan Start: 01/16/21 08:12 Freq: Status: Active Protocol: Document 02/06/21 14:30 AMB (Rec: 02/06/21 15:56 AMB [email or web address]) Physical Therapy Assessment Assessment Summary Assessment Doreen had a difficult time not over utilizing upper traps with supine chin tuck, but did better in sitting. Physical Therapy Plan Next Visit Focus/Plan Next Note Type Treatment Note Next Visit Plan Pt has written HEP of chin tuck
--- NOTE | 2021-02-21 14:51 | PT.OTN ---
Current Diagnoses Pain in left shoulder (02/21/21) Cervicalgia (02/21/21) Dorsalgia, unspecified (02/21/21) Physical Therapy Treatment Note PT-OP-A Visit Information Start: 01/16/21 08:12 Freq: Status: Active Protocol: Document 02/21/21 13:30 AMB (Rec: 02/21/21 13:50 AMB [id number]) Out-Patient Physical Therapy Visit Information Visit Information Visit Type Treatment Note Visit Start Time 13:30 Visit Stop Time 14:30 Total Visit Minutes 55 Visit Number 5 PT-OP-B Current Condition Start: 01/16/21 08:12 Freq: Status: Active Protocol: Document 01/26/21 13:02 AMB (Rec: 01/26/21 13:14 AMB [id number]) Current Condition History of Current Condition Onset Date 4 months ago Current Complaints L neck/shoulder pain, chronic LBP History of Current Condition 3-4 months, woke up with a stiff neck. Sleeping on the left shoulder is painful. Difficulty with looking behind while parking due to restricted cervical rotation which is important because (R eye diminished vision for 5 years). Pt reports 1-2 falls in the last 6 months. Chronic low back pain with standing for 15 minutes- more chronic. Pain has been staying the same since onset. Pt is caregiver for adult with Down Syndrome. Treatment Goals Patient/Caregiver Goals Reduce L shoulder/neck/LBP. LBP limits standing, neck pain limits rotation and looking up after looking down, shoulder limits sleeping. Prior Functional Status Baseline Function- ADL's Independent Baseline Function- Mobility Independent Current Functional Impairments (Reported) Functional Limitations- ADL's Impaired cervical rotation, sleeping, standing as above PT-OP-C Subjective Start: 01/16/21 08:12 Freq: Status: Active Protocol: Document 02/21/21 13:45 AMB (Rec: 02/21/21 14:45 AMB [email or web address]) OP-PT Subjective Patient Comments Patient Comments Pt states she is feeling a bit better. Feels like neck is doing a bit better. PT-OP-J Posture/Palpation/Skin Start: 01/16/21 08:12 Freq: Status: Active Protocol: Document 01/26/21 13:00 AMB (Rec: 01/27/21 16:24 AMB [email or web address]) Palpation Assessment Location One Palpation Location L neck/shoulder Palpation Findings Soft Tissue Tightness,Spasm, Muscle Guarding,Tenderness PT-OP-K Range of Motion Start: 01/16/21 08:12 Freq: Status: Active Protocol: Document 01/26/21 13:00 AMB (Rec: 01/27/21 16:23 AMB [email or web address]) Cervical Spine Range of Motion Cervical Spine Active Degrees Testing Position Sitting Flexion 50 Extension 25 Rotation Left 45 Rotation Right 50 Lateral Flexion Left 25 Lateral Flexion Right 28 Comments pain coming up from flexion, with with left rotation Shoulder Goniometric Range of Motion Shoulder Left Passive Flexion 140 Abduction 120 External Rotation at 90 degrees 30 Abduction Left Active Testing Position Sitting Flexion 132 Abduction 120 Right Active Testing Position Sitting Flexion 156 Abduction 180 PT-OP-Q Treatments Start: 01/16/21 08:12 Freq: Status: Active Protocol: Document 02/21/21 13:45 AMB (Rec: 02/21/21 14:45 AMB [email or web address]) Therapeutic Exercises Sitting Exercises 3 Sitting Exercise Name pulleys Comments flexion and scaption 2 Sitting Exercise Name chin tuck Reps/Minutes 10x5 1 Sitting Exercise Name UT stretch Side left Reps/Minutes 30x2 Standing Exercises rows Resistance #3 t band Reps/Minutes 2x10 Manual Therapy Treatment Soft Tissue Mobilization 1 Body Location UT, lev scap, Mobilization Type Myofascial Release,Sustained Pressure,Trigger Point Release Intensity/Depth Moderate Body Position Hooklying Comments left Manual Traction Cervical Body Position Hooklying Reps/Duration 30x4 Manual Techniques 1 Type L shoulder PROM Body Position Hooklying Comments flexion and abduction PT-OP-R Modalities Start: 01/16/21 08:12 Freq: Status: Active Protocol: Document 02/21/21 13:45 AMB (Rec: 02/21/21 14:45 AMB [email or web address]) Electric Stimulation Electric Stimulation Interferential Current (IFC) Body Location L neck/shoulder Duration (Minutes) 15 Patient Position Hooklying Combined With Heat/Cold Hot Pack PT-OP-T Assessment and Plan Start: 01/16/21 08:12 Freq: Status: Active Protocol: Document 02/21/21 13:30 AMB (Rec: 02/21/21 13:50 AMB [id number]) Physical Therapy Assessment Goals Three Impairment Shoulder pain Short Term Goal (STG) Doreen will improe her left shoulder flexion arom to 150 degrees. STG Duration 4 weeks Executive Vice President Of Sales Goal (LTG) Doreen will sleep on her left shoulder without an increase in her baseline pain. LTG Duration 8 weeks Two Impairment Cervical rotation Short Term Goal (STG) Doreen will improve her cervical rotation arom to 60 degrees bilaterally. STG Duration 4 weeks Executive Vice President Of Sales Goal (LTG) Doreen will rotate her head to check her blind spot without an increase in her baseline pain. 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 STG Duration 4 weeks Assessment Summary Assessment Pt is feeling cervical rotation is improving. Slept better in hotel. Educated in standing body mechanics for doing the dishes, for her back pain, will need to revisit body mechanics. Physical Therapy Plan Next Visit Focus/Plan Next Note Type Treatment Note Next Visit Plan Pt has written HEP of chin tuck and standing rows.
--- NOTE | 2021-02-24 11:29 | PT.OTN ---
Current Diagnoses Pain in left shoulder (02/24/21) Cervicalgia (02/24/21) Dorsalgia, unspecified (02/24/21) Physical Therapy Treatment Note PT-OP-A Visit Information Start: 01/16/21 08:12 Freq: Status: Active Protocol: Document 02/24/21 10:31 AMB (Rec: 02/24/21 11:29 AMB [id number]) Out-Patient Physical Therapy Visit Information Visit Information Visit Type Treatment Note Visit Start Time 10:30 Visit Stop Time 11:15 Total Visit Minutes 45 Visit Number 6 PT-OP-B Current Condition Start: 01/16/21 08:12 Freq: Status: Active Protocol: Document 01/26/21 13:02 AMB (Rec: 01/26/21 13:14 AMB [id number]) Current Condition History of Current Condition Onset Date 4 months ago Current Complaints L neck/shoulder pain, chronic LBP History of Current Condition 3-4 months, woke up with a stiff neck. Sleeping on the left shoulder is painful. Difficulty with looking behind while parking due to restricted cervical rotation which is important because (R eye diminished vision for 5 years). Pt reports 1-2 falls in the last 6 months. Chronic low back pain with standing for 15 minutes- more chronic. Pain has been staying the same since onset. Pt is caregiver for adult with Down Syndrome. Treatment Goals Patient/Caregiver Goals Reduce L shoulder/neck/LBP. LBP limits standing, neck pain limits rotation and looking up after looking down, shoulder limits sleeping. Prior Functional Status Baseline Function- ADL's Independent Baseline Function- Mobility Independent Current Functional Impairments (Reported) Functional Limitations- ADL's Impaired cervical rotation, sleeping, standing as above PT-OP-C Subjective Start: 01/16/21 08:12 Freq: Status: Active Protocol: Document 02/24/21 10:31 AMB (Rec: 02/24/21 11:29 AMB [id number]) OP-PT Subjective Patient Comments Patient Comments Pt is feeling like shoulder is moving a bit more. PT-OP-J Posture/Palpation/Skin Start: 01/16/21 08:12 Freq: Status: Active Protocol: Document 01/26/21 13:00 AMB (Rec: 01/27/21 16:24 AMB [email or web address]) Palpation Assessment Location One Palpation Location L neck/shoulder Palpation Findings Soft Tissue Tightness,Spasm, Muscle Guarding,Tenderness PT-OP-K Range of Motion Start: 01/16/21 08:12 Freq: Status: Active Protocol: Document 01/26/21 13:00 AMB (Rec: 01/27/21 16:23 AMB [email or web address]) Cervical Spine Range of Motion Cervical Spine Active Degrees Testing Position Sitting Flexion 50 Extension 25 Rotation Left 45 Rotation Right 50 Lateral Flexion Left 25 Lateral Flexion Right 28 Comments pain coming up from flexion, with with left rotation Shoulder Goniometric Range of Motion Shoulder Left Passive Flexion 140 Abduction 120 External Rotation at 90 degrees 30 Abduction Left Active Testing Position Sitting Flexion 132 Abduction 120 Right Active Testing Position Sitting Flexion 156 Abduction 180 PT-OP-Q Treatments Start: 01/16/21 08:12 Freq: Status: Active Protocol: Document 02/24/21 10:31 AMB (Rec: 02/24/21 11:29 AMB [id number]) Therapeutic Exercises Supine Exercises prom Comments shoulder flexion, abd with ER Sitting Exercises 3 Sitting Exercise Name pulleys Comments flexion and scaption 2 Sitting Exercise Name chin tuck Reps/Minutes 10x5 Standing Exercises Er/IR Resistance #1 band Reps/Minutes 2x10 ea rows Resistance #3 t band Reps/Minutes 2x10 Manual Therapy Treatment Soft Tissue Mobilization 1 Body Location UT, lev scap, subscap Mobilization Type Myofascial Release,Sustained Pressure,Trigger Point Release Intensity/Depth Moderate Body Position Hooklying Comments left Joint Mobilizations 2 Joint GH inferior and AP Grade III Body Position Hooklying PT-OP-R Modalities Start: 01/16/21 08:12 Freq: Status: Active Protocol: Document 02/21/21 13:45 AMB (Rec: 02/21/21 14:45 AMB [email or web address]) Electric Stimulation Electric Stimulation Interferential Current (IFC) Body Location L neck/shoulder Duration (Minutes) 15 Patient Position Hooklying Combined With Heat/Cold Hot Pack PT-OP-T Assessment and Plan Start: 01/16/21 08:12 Freq: Status: Active Protocol: Document 02/24/21 10:31 AMB (Rec: 02/24/21 11:29 AMB [id number]) Physical Therapy Assessment Goals Three Impairment Shoulder pain Short Term Goal (STG) Doreen will improe her left shoulder flexion arom to 150 degrees. STG Duration 4 weeks Contract Post Office Clerk Goal (LTG) Doreen will sleep on her left shoulder without an increase in her baseline pain. LTG Duration 8 weeks Two Impairment Cervical rotation Short Term Goal (STG) Doreen will improve her cervical rotation arom to 60 degrees bilaterally. STG Duration 4 weeks Mcfp Goal (LTG) Doreen will rotate her head to check her blind spot without an increase in her baseline pain. LTG Duration 8 weeks One Impairment Standing tolerance Short Term Goal (STG) Doreen will stand for 30 minutes to cook candy without an increase in her baseline low back pain. STG Duration 4 weeks Assessment Summary Assessment Worked more on shoulder today, pt to watch posture while standing/cooking over the weekend, if that does not help back pain we will work more on back next visit. Physical Therapy Plan Next Visit Focus/Plan Next Note Type Treatment Note Next Visit Plan Pt has written HEP of chin tuhelen and standing rows, t band ER/IR.
--- NOTE | 2021-03-01 16:00 | PT.OTN ---
Current Diagnoses Pain in left shoulder (03/01/21) Cervicalgia (03/01/21) Dorsalgia, unspecified (03/01/21) Physical Therapy Treatment Note PT-OP-A Visit Information Start: 01/16/21 08:12 Freq: Status: Active Protocol: Document 03/01/21 13:45 AMB (Rec: 03/01/21 14:35 AMB [id number]) Out-Patient Physical Therapy Visit Information Visit Information Visit Type Treatment Note Visit Start Time 13:45 Visit Stop Time 14:30 Total Visit Minutes 45 Visit Number 7 PT-OP-B Current Condition Start: 01/16/21 08:12 Freq: Status: Active Protocol: Document 01/26/21 13:02 AMB (Rec: 01/26/21 13:14 AMB [id number]) Current Condition History of Current Condition Onset Date 4 months ago Current Complaints L neck/shoulder pain, chronic LBP History of Current Condition 3-4 months, woke up with a stiff neck. Sleeping on the left shoulder is painful. Difficulty with looking behind while parking due to restricted cervical rotation which is important because (R eye diminished vision for 5 years). Pt reports 1-2 falls in the last 6 months. Chronic low back pain with standing for 15 minutes- more chronic. Pain has been staying the same since onset. Pt is caregiver for adult with Down Syndrome. Treatment Goals Patient/Caregiver Goals Reduce L shoulder/neck/LBP. LBP limits standing, neck pain limits rotation and looking up after looking down, shoulder limits sleeping. Prior Functional Status Baseline Function- ADL's Independent Baseline Function- Mobility Independent Current Functional Impairments (Reported) Functional Limitations- ADL's Impaired cervical rotation, sleeping, standing as above PT-OP-C Subjective Start: 01/16/21 08:12 Freq: Status: Active Protocol: Document 03/01/21 13:45 AMB (Rec: 03/02/21 08:19 AMB [email or web address]) OP-PT Subjective Patient Comments Patient Comments Doreen says new t band exercises are going well. overall feels like neck is moving better and back isn't as bad as it had been. would like to work on shoulder today. PT-OP-J Posture/Palpation/Skin Start: 01/16/21 08:12 Freq: Status: Active Protocol: Document 01/26/21 13:00 AMB (Rec: 01/27/21 16:24 AMB [email or web address]) Palpation Assessment Location One Palpation Location L neck/shoulder Palpation Findings Soft Tissue Tightness,Spasm, Muscle Guarding,Tenderness PT-OP-K Range of Motion Start: 01/16/21 08:12 Freq: Status: Active Protocol: Document 01/26/21 13:00 AMB (Rec: 01/27/21 16:23 AMB [email or web address]) Cervical Spine Range of Motion Cervical Spine Active Degrees Testing Position Sitting Flexion 50 Extension 25 Rotation Left 45 Rotation Right 50 Lateral Flexion Left 25 Lateral Flexion Right 28 Comments pain coming up from flexion, with with left rotation Shoulder Goniometric Range of Motion Shoulder Left Passive Flexion 140 Abduction 120 External Rotation at 90 degrees 30 Abduction Left Active Testing Position Sitting Flexion 132 Abduction 120 Right Active Testing Position Sitting Flexion 156 Abduction 180 PT-OP-Q Treatments Start: 01/16/21 08:12 Freq: Status: Active Protocol: Document 03/01/21 13:45 AMB (Rec: 03/02/21 08:19 AMB [email or web address]) Therapeutic Exercises Sitting Exercises 3 Sitting Exercise Name pulleys Comments flexion and scaption 2 Sitting Exercise Name chin tuck Reps/Minutes 10x5 Standing Exercises Er/IR Resistance #1 band Reps/Minutes 2x10 ea rows Resistance #3 t band Reps/Minutes 2x10 Manual Therapy Treatment Soft Tissue Mobilization 1 Body Location anterior or lateral shoulder Mobilization Type Myofascial Release,Sustained Pressure,Trigger Point Release Intensity/Depth Moderate Body Position Hooklying Comments left Joint Mobilizations 3 Joint GH joint AP PT-OP-R Modalities Start: 01/16/21 08:12 Freq: Status: Active Protocol: Document 02/21/21 13:45 AMB (Rec: 02/21/21 14:45 AMB [email or web address]) Electric Stimulation Electric Stimulation Interferential Current (IFC) Body Location L neck/shoulder Duration (Minutes) 15 Patient Position Hooklying Combined With Heat/Cold Hot Pack PT-OP-T Assessment and Plan Start: 01/16/21 08:12 Freq: Status: Active Protocol: Document 03/01/21 13:45 AMB (Rec: 03/02/21 08:19 AMB [email or web address]) Physical Therapy Assessment Goals Three Impairment Shoulder pain Short Term Goal (STG) Doreen will improe her left shoulder flexion arom to 150 degrees. STG Duration 4 weeks Wire Tinner Goal (LTG) Doreen will sleep on her left shoulder without an increase in her baseline pain. LTG Duration 8 weeks Two Impairment Cervical rotation Short Term Goal (STG) Doreen will improve her cervical rotation arom to 60 degrees bilaterally. STG Duration 4 weeks Wire Tinner Goal (LTG) Doreen will rotate her head to check her blind spot without an increase in her baseline pain. 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 STG Duration 4 weeks Assessment Summary Assessment Doreen does well with the david . She did have pain with palpation over long head of biceps tendon. Limited in abduction and ER with pain. Physical Therapy Plan Next Visit Focus/Plan Next Note Type Treatment Note Next Visit Plan Pt has written HEP of chin tuck and standing rows, t band ER/IR. Progress written HEP with more shoulder AAROM lance working into abduction.
--- NOTE | 2021-03-08 12:00 | PT.OTN ---
Current Diagnoses Pain in left shoulder (03/08/21) Cervicalgia (03/08/21) Dorsalgia, unspecified (03/08/21) Physical Therapy Treatment Note PT-OP-A Visit Information Start: 01/16/21 08:12 Freq: Status: Active Protocol: Document 03/08/21 10:30 AMB (Rec: 03/08/21 10:47 AMB [id number]) Out-Patient Physical Therapy Visit Information Visit Information Visit Type Treatment Note Visit Start Time 10:30 Visit Stop Time 11:15 Total Visit Minutes 45 Visit Number 8 PT-OP-B Current Condition Start: 01/16/21 08:12 Freq: Status: Active Protocol: Document 01/26/21 13:02 AMB (Rec: 01/26/21 13:14 AMB [id number]) Current Condition History of Current Condition Onset Date 4 months ago Current Complaints L neck/shoulder pain, chronic LBP History of Current Condition 3-4 months, woke up with a stiff neck. Sleeping on the left shoulder is painful. Difficulty with looking behind while parking due to restricted cervical rotation which is important because (R eye diminished vision for 5 years). Pt reports 1-2 falls in the last 6 months. Chronic low back pain with standing for 15 minutes- more chronic. Pain has been staying the same since onset. Pt is caregiver for adult with Down Syndrome. Treatment Goals Patient/Caregiver Goals Reduce L shoulder/neck/LBP. LBP limits standing, neck pain limits rotation and looking up after looking down, shoulder limits sleeping. Prior Functional Status Baseline Function- ADL's Independent Baseline Function- Mobility Independent Current Functional Impairments (Reported) Functional Limitations- ADL's Impaired cervical rotation, sleeping, standing as above PT-OP-C Subjective Start: 01/16/21 08:12 Freq: Status: Active Protocol: Document 03/08/21 10:30 AMB (Rec: 03/08/21 10:47 AMB [id number]) OP-PT Subjective Patient Comments Patient Comments Neck and back are better, has had pain with weightbearing through the shoulder. PT-OP-J Posture/Palpation/Skin Start: 01/16/21 08:12 Freq: Status: Active Protocol: Document 01/26/21 13:00 AMB (Rec: 01/27/21 16:24 AMB [email or web address]) Palpation Assessment Location One Palpation Location L neck/shoulder Palpation Findings Soft Tissue Tightness,Spasm, Muscle Guarding,Tenderness PT-OP-K Range of Motion Start: 01/16/21 08:12 Freq: Status: Active Protocol: Document 01/26/21 13:00 AMB (Rec: 01/27/21 16:23 AMB [email or web address]) Cervical Spine Range of Motion Cervical Spine Active Degrees Testing Position Sitting Flexion 50 Extension 25 Rotation Left 45 Rotation Right 50 Lateral Flexion Left 25 Lateral Flexion Right 28 Comments pain coming up from flexion, with with left rotation Shoulder Goniometric Range of Motion Shoulder Left Passive Flexion 140 Abduction 120 External Rotation at 90 degrees 30 Abduction Left Active Testing Position Sitting Flexion 132 Abduction 120 Right Active Testing Position Sitting Flexion 156 Abduction 180 PT-OP-Q Treatments Start: 01/16/21 08:12 Freq: Status: Active Protocol: Document 03/08/21 10:30 AMB (Rec: 03/08/21 10:47 AMB [id number]) Therapeutic Exercises Sitting Exercises 3 Sitting Exercise Name pulleys Equipment Used 5' Comments flexion and scaption 2 Sitting Exercise Name chin tuck Reps/Minutes 10x5 Standing Exercises pec stretch Reps/Minutes 30x4 Comments with modifications lower arm to avoid pain Er/IR Resistance #1 band Reps/Minutes 2x10 ea rows Resistance #3 t band Reps/Minutes 2x10 Manual Therapy Treatment Soft Tissue Mobilization 1 Body Location anterior or lateral shoulder Mobilization Type Myofascial Release,Sustained Pressure,Trigger Point Release Intensity/Depth Moderate Body Position Hooklying Comments left Joint Mobilizations 3 Joint GH joint AP PT-OP-R Modalities Start: 01/16/21 08:12 Freq: Status: Active Protocol: Document 03/08/21 10:30 AMB (Rec: 03/12/21 10:02 AMB [email or web address]) Electric Stimulation Electric Stimulation Interferential Current (IFC) Body Location L neck/shoulder Duration (Minutes) 15 Patient Position Hooklying Combined With Heat/Cold Hot Pack PT-OP-T Assessment and Plan Start: 01/16/21 08:12 Freq: Status: Active Protocol: Document 03/08/21 10:30 AMB (Rec: 03/12/21 10:02 AMB [email or web address]) Physical Therapy Assessment Assessment Summary Assessment Doreen's neck and back are improving, she continues to have pain over L scapula and biceps tendon Physical Therapy Plan Next Visit Focus/Plan Next Note Type Treatment Note Next Visit Plan Follow up on pec stretch
--- NOTE | 2021-03-14 13:30 | PT.OTN ---
Current Diagnoses Pain in left shoulder (03/14/21) Cervicalgia (03/14/21) Dorsalgia, unspecified (03/14/21) Physical Therapy Treatment Note PT-OP-A Visit Information Start: 01/16/21 08:12 Freq: Status: Active Protocol: Document 03/14/21 10:19 AMB (Rec: 03/14/21 10:19 AMB [id number]) Out-Patient Physical Therapy Visit Information Visit Information Visit Type Progress Note Visit Start Time 10:30 Visit Stop Time 11:15 Total Visit Minutes 45 Visit Number 9 PT-OP-B Current Condition Start: 01/16/21 08:12 Freq: Status: Active Protocol: Document 01/26/21 13:02 AMB (Rec: 01/26/21 13:14 AMB [id number]) Current Condition History of Current Condition Onset Date 4 months ago Current Complaints L neck/shoulder pain, chronic LBP History of Current Condition 3-4 months, woke up with a stiff neck. Sleeping on the left shoulder is painful. Difficulty with looking behind while parking due to restricted cervical rotation which is important because (R eye diminished vision for 5 years). Pt reports 1-2 falls in the last 6 months. Chronic low back pain with standing for 15 minutes- more chronic. Pain has been staying the same since onset. Pt is caregiver for adult with Down Syndrome. Treatment Goals Patient/Caregiver Goals Reduce L shoulder/neck/LBP. LBP limits standing, neck pain limits rotation and looking up after looking down, shoulder limits sleeping. Prior Functional Status Baseline Function- ADL's Independent Baseline Function- Mobility Independent Current Functional Impairments (Reported) Functional Limitations- ADL's Impaired cervical rotation, sleeping, standing as above PT-OP-C Subjective Start: 01/16/21 08:12 Freq: Status: Active Protocol: Document 03/14/21 09:45 AMB (Rec: 03/15/21 13:03 AMB [email or web address]) OP-PT Subjective Patient Comments Patient Comments Neck is better, shoulder still hurts to sleep on, back hurts when standing for extended periods of time but not quite as bad as when starting PT. PT-OP-J Posture/Palpation/Skin Start: 01/16/21 08:12 Freq: Status: Active Protocol: Document 01/26/21 13:00 AMB (Rec: 01/27/21 16:24 AMB [email or web address]) Palpation Assessment Location One Palpation Location L neck/shoulder Palpation Findings Soft Tissue Tightness,Spasm, Muscle Guarding,Tenderness PT-OP-K Range of Motion Start: 01/16/21 08:12 Freq: Status: Active Protocol: Document 03/14/21 09:50 AMB (Rec: 03/14/21 10:03 AMB [id number]) Cervical Spine Range of Motion Cervical Spine Active Degrees Flexion 50 Extension 40 Rotation Left 60 Rotation Right 60 Lateral Flexion Left 20 Lateral Flexion Right 30 Shoulder Goniometric Range of Motion Shoulder Left Passive Flexion 140 Abduction 120 External Rotation at 90 degrees 45 Abduction PT-OP-Q Treatments Start: 01/16/21 08:12 Freq: Status: Active Protocol: Document 03/14/21 09:45 AMB (Rec: 03/15/21 13:29 AMB [email or web address]) Therapeutic Exercises Supine Exercises prom Comments shoulder flexion, abd with ER Sitting Exercises 3 Sitting Exercise Name pulleys Equipment Used 5' Comments flexion and scaption Standing Exercises pec stretch Reps/Minutes 30x4 Comments with modifications lower arm to avoid pain Er/IR Resistance #1 band Reps/Minutes 2x10 ea rows Resistance #3 t band Reps/Minutes 2x10 PT-OP-R Modalities Start: 01/16/21 08:12 Freq: Status: Active Protocol: Document 03/14/21 09:45 AMB (Rec: 03/15/21 13:29 AMB [email or web address]) Electric Stimulation Electric Stimulation Interferential Current (IFC) Body Location L neck/shoulder Duration (Minutes) 15 Patient Position Hooklying Combined With Heat/Cold Hot Pack PT-OP-T Assessment and Plan Start: 01/16/21 08:12 Freq: Status: Active Protocol: Document 03/14/21 09:45 AMB (Rec: 03/15/21 13:03 AMB [email or web address]) Physical Therapy Assessment Goals Three Impairment Shoulder pain Short Term Goal (STG) Doreen will improve her left shoulder flexion arom to 150 degrees. STG Duration 4 weeks-03/14- not yet met Care Home Goal (LTG) Doreen will sleep on her left shoulder without an increase in her baseline pain. LTG Duration 8 weeks 03/14-- not yet met Two Impairment Cervical rotation Short Term Goal (STG) Doreen will improve her cervical rotation arom to 60 degrees bilaterally. STG Duration MET Carpentry Specialist Goal (LTG) Doreen will rotate her head to check her blind spot without an increase in her baseline pain. 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 STG Duration 4 weeks 03/14- progress made Assessment Summary Assessment Doreen has demonstrated good improvement in her neck ROM and improvement in back pain with instruction in body mechanics. We have really just started working on her shoulder given that she came in with 3 body parts to work on. The shoulder has shown small improvement in increased external rotation range, but continues to be painful when she sleeps on it and limited in range with any over the shoulder movements. Physical Therapy Plan Frequency and Duration Frequency of Treatment 2x/Week Duration of Treatment 8 weeks Plan of Care Start Date 03/14/21 Plan of Care End Date 05/02/21 Therapeutic Interventions Therapeutic Interventions Home Exercise Program,Joint Mobilizations,Manual Therapy, Neuromuscular Re-education, Self-Care/Home Management, Therapeutic Activities, Therapeutic Exercises Modalities Electric Stimulation,Hot Packs Next Visit Focus/Plan Next Note Type Treatment Note Next Visit Plan Progress written HEP.
--- NOTE | 2021-03-14 13:31 | PT.OPPOC ---
Physical, Occupational & Speech Therapy At [facility] Current Diagnoses Pain in left shoulder (03/14/21) Cervicalgia (03/14/21) Dorsalgia, unspecified (03/14/21) Visit Care Team Role Provider Type Lilian Whitehead DO Attending Provider Physician Family Provider Primary Care Provider Referring Provider Specialty: Family Practice Address: [address] [place] [address], [place], [address] Email: [email or web address] Plan Of Care PT-OP-T Assessment and Plan Start: 01/16/21 08:12 Freq: Status: Active Protocol: Document 03/14/21 09:45 AMB (Rec: 03/15/21 13:03 AMB [email or web address]) Physical Therapy Assessment Goals Three Impairment Shoulder pain Short Term Goal (STG) Doreen will improve her left shoulder flexion arom to 150 degrees. STG Duration 4 weeks-03/14- not yet met Candy Starch Mold Printer Goal (LTG) Doreen will sleep on her left shoulder without an increase in her baseline pain. LTG Duration 8 weeks 03/14-- not yet met Two Impairment Cervical rotation Short Term Goal (STG) Doreen will improve her cervical rotation arom to 60 degrees bilaterally. STG Duration MET Detention Goal (LTG) Doreen will rotate her head to check her blind spot without an increase in her baseline pain. 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 STG Duration 4 weeks 03/14- progress made Assessment Summary Assessment Doreen has demonstrated good improvement in her neck ROM and improvement in back pain with instruction in body mechanics. We have really just started working on her shoulder given that she came in with 3 body parts to work on. The shoulder has shown small improvement in increased external rotation range, but continues to be painful when she sleeps on it and limited in range with any over the shoulder movements.Pt will benefit from continued PT to improve her shoulder range and decrease shoulder and back pain. Physical Therapy Plan Frequency and Duration Frequency of Treatment 2x/Week Duration of Treatment 8 weeks Plan of Care Start Date 03/14/21 Plan of Care End Date 05/02/21 Therapeutic Interventions Therapeutic Interventions Home Exercise Program,Joint Mobilizations,Manual Therapy, Neuromuscular Re-education, Self-Care/Home Management, Therapeutic Activities, Therapeutic Exercises Modalities Electric Stimulation,Hot Packs Next Visit Focus/Plan Next Note Type Treatment Note Next Visit Plan Progress written HEP. Plan of Care Dates Plan of Care Start Date 03/14/21 Plan of Care End Date 05/02/21 Electronically Signed by: Sarah Peña, PT 03/15/21 [id number] Please Sign and Return: I have reviewed this Plan of Care and certify that the skilled therapy services above are required to meet the patient?s needs. Physician Signature Date Printed Name and Credentials Clinical Instructor Signature Printed Name and Credentials
--- NOTE | 2021-03-17 16:12 | PT.OTN ---
Current Diagnoses Pain in left shoulder (03/17/21) Cervicalgia (03/17/21) Dorsalgia, unspecified (03/17/21) Physical Therapy Treatment Note PT-OP-A Visit Information Start: 01/16/21 08:12 Freq: Status: Active Protocol: Document 03/17/21 10:30 AMB (Rec: 03/17/21 11:04 AMB [id number]) Out-Patient Physical Therapy Visit Information Visit Information Visit Type Treatment Note Visit Start Time 10:30 Visit Stop Time 11:15 Total Visit Minutes 45 Visit Number 10 PT-OP-B Current Condition Start: 01/16/21 08:12 Freq: Status: Active Protocol: Document 01/26/21 13:02 AMB (Rec: 01/26/21 13:14 AMB [id number]) Current Condition History of Current Condition Onset Date 4 months ago Current Complaints L neck/shoulder pain, chronic LBP History of Current Condition 3-4 months, woke up with a stiff neck. Sleeping on the left shoulder is painful. Difficulty with looking behind while parking due to restricted cervical rotation which is important because (R eye diminished vision for 5 years). Pt reports 1-2 falls in the last 6 months. Chronic low back pain with standing for 15 minutes- more chronic. Pain has been staying the same since onset. Pt is caregiver for adult with Down Syndrome. Treatment Goals Patient/Caregiver Goals Reduce L shoulder/neck/LBP. LBP limits standing, neck pain limits rotation and looking up after looking down, shoulder limits sleeping. Prior Functional Status Baseline Function- ADL's Independent Baseline Function- Mobility Independent Current Functional Impairments (Reported) Functional Limitations- ADL's Impaired cervical rotation, sleeping, standing as above PT-OP-C Subjective Start: 01/16/21 08:12 Freq: Status: Active Protocol: Document 03/17/21 10:30 AMB (Rec: 03/17/21 11:04 AMB [id number]) OP-PT Subjective Patient Comments Patient Comments Pt reports no soreness after last visit. PT-OP-J Posture/Palpation/Skin Start: 01/16/21 08:12 Freq: Status: Active Protocol: Document 01/26/21 13:00 AMB (Rec: 01/27/21 16:24 AMB [email or web address]) Palpation Assessment Location One Palpation Location L neck/shoulder Palpation Findings Soft Tissue Tightness,Spasm, Muscle Guarding,Tenderness PT-OP-K Range of Motion Start: 01/16/21 08:12 Freq: Status: Active Protocol: Document 03/14/21 09:50 AMB (Rec: 03/14/21 10:03 AMB [id number]) Cervical Spine Range of Motion Cervical Spine Active Degrees Flexion 50 Extension 40 Rotation Left 60 Rotation Right 60 Lateral Flexion Left 20 Lateral Flexion Right 30 Shoulder Goniometric Range of Motion Shoulder Left Passive Flexion 140 Abduction 120 External Rotation at 90 degrees 45 Abduction PT-OP-Q Treatments Start: 01/16/21 08:12 Freq: Status: Active Protocol: Document 03/17/21 10:30 AMB (Rec: 03/17/21 16:09 AMB [email or web address]) Therapeutic Exercises Supine Exercises 3 Supine Exercise Name LTR Reps/Minutes 10 2 Supine Exercise Name TA tap down Reps/Minutes 2x10 Comments cues for TA facilitiation 1 Supine Exercise Name Bridges Reps/Minutes 2x10 Comments cues to lift tailbone first, then ascending vertebrae, cue TA Sidelying Exercises 1 Sidelying Exercise Name clamshell Resistance #2 tband Reps/Minutes 2x10 Sitting Exercises 3 Sitting Exercise Name pulleys Equipment Used 5' Comments flexion and scaption PT-OP-R Modalities Start: 01/16/21 08:12 Freq: Status: Active Protocol: Document 03/14/21 09:45 AMB (Rec: 03/15/21 13:29 AMB [email or web address]) Electric Stimulation Electric Stimulation Interferential Current (IFC) Body Location L neck/shoulder Duration (Minutes) 15 Patient Position Hooklying Combined With Heat/Cold Hot Pack PT-OP-T Assessment and Plan Start: 01/16/21 08:12 Freq: Status: Active Protocol: Document 03/17/21 10:30 AMB (Rec: 03/17/21 11:04 AMB [id number]) Physical Therapy Assessment Goals Three Impairment Shoulder pain Short Term Goal (STG) Doreen will improve her left shoulder flexion arom to 150 degrees. STG Duration 4 weeks-03/14- not yet met Electrical Accessories Ii Assembler Goal (LTG) Doreen will sleep on her left shoulder without an increase in her baseline pain. LTG Duration 8 weeks 03/14-- not yet met Two Impairment Cervical rotation Short Term Goal (STG) Doreen will improve her cervical rotation arom to 60 degrees bilaterally. STG Duration MET Detention Goal (LTG) Doreen will rotate her head to check her blind spot without an increase in her baseline pain. 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 STG Duration 4 weeks 03/14- progress made Assessment Summary Assessment Doreen's neck is doing well, started low back stability/ core training today as we had not really started it yet. Continue to work on left shoulder mobility and core training with posture/body mechanics training as necessary. Physical Therapy Plan Next Visit Focus/Plan Next Note Type Treatment Note Next Visit Plan Continue to progress shoulder range and core stability.
--- NOTE | 2021-03-24 11:25 | PT.OTN ---
Current Diagnoses Pain in left shoulder (03/24/21) Cervicalgia (03/24/21) Dorsalgia, unspecified (03/24/21) Physical Therapy Treatment Note PT-OP-A Visit Information Start: 01/16/21 08:12 Freq: Status: Active Protocol: Document 03/24/21 10:30 SP (Rec: 03/24/21 12:00 SP [id number]) Out-Patient Physical Therapy Visit Information Visit Information Visit Type Treatment Note Visit Note DEYVI Bhat provided manual and education to pt as needed while assisting RADIOTELEGRAPH OPERATOR SERVICER Tiffany, supervised throughout tx. Visit Start Time 10:30 Visit Stop Time 11:25 Total Visit Minutes 55 Visit Number 11 Number of RADIOTELEGRAPH OPERATOR SERVICER Visits 1 PT-OP-B Current Condition Start: 01/16/21 08:12 Freq: Status: Active Protocol: Document 01/26/21 13:02 AMB (Rec: 01/26/21 13:14 AMB [id number]) Current Condition History of Current Condition Onset Date 4 months ago Current Complaints L neck/shoulder pain, chronic LBP History of Current Condition 3-4 months, woke up with a stiff neck. Sleeping on the left shoulder is painful. Difficulty with looking behind while parking due to restricted cervical rotation which is important because (R eye diminished vision for 5 years). Pt reports 1-2 falls in the last 6 months. Chronic low back pain with standing for 15 minutes- more chronic. Pain has been staying the same since onset. Pt is caregiver for adult with Down Syndrome. Treatment Goals Patient/Caregiver Goals Reduce L shoulder/neck/LBP. LBP limits standing, neck pain limits rotation and looking up after looking down, shoulder limits sleeping. Prior Functional Status Baseline Function- ADL's Independent Baseline Function- Mobility Independent Current Functional Impairments (Reported) Functional Limitations- ADL's Impaired cervical rotation, sleeping, standing as above PT-OP-C Subjective Start: 01/16/21 08:12 Freq: Status: Active Protocol: Document 03/24/21 10:30 SP (Rec: 03/24/21 12:00 SP [id number]) OP-PT Subjective Patient Comments Patient Comments Pt reports had a tumble when turning in house lost balance and hit back head on something happened so fast but didn't completely fall to the floor. Pt reports is able to turn head better B. She also reported did have a tumble, unsure why/ how happened so fast turned to R and fell back but not completely to floor, did hit her head on something and able to control bleeding fairly quickly. She reported didn't need have assessed by physician, felt fine. PT-OP-J Posture/Palpation/Skin Start: 01/16/21 08:12 Freq: Status: Active Protocol: Document 01/26/21 13:00 AMB (Rec: 01/27/21 16:24 AMB [email or web address]) Palpation Assessment Location One Palpation Location L neck/shoulder Palpation Findings Soft Tissue Tightness,Spasm, Muscle Guarding,Tenderness PT-OP-K Range of Motion Start: 01/16/21 08:12 Freq: Status: Active Protocol: Document 03/24/21 10:30 SP (Rec: 03/24/21 12:00 SP [id number]) Shoulder Goniometric Range of Motion Shoulder Left Active Shoulder ROM WFL No Testing Position Supine Flexion 147 Abduction 110 External Rotation at 45 degrees 55 Abduction Comments pain over posterolateral L shld end feel(posterior deltoid area extends down to distal attachment), improves ROM and lessening discomfort with reps. PT-OP-Q Treatments Start: 01/16/21 08:12 Freq: Status: Active Protocol: Document 03/24/21 10:30 SP (Rec: 03/24/21 12:00 SP [id number]) Therapeutic Exercises Supine Exercises supine CS rotation w/ head nod end feel/range Supine Exercise Name good tolerance, painfree ROM Side bilateral Reps/Minutes 3 reps Comments did not add to HEP, states already just doing this 3 Supine Exercise Name LTR Side bilateral Equipment Used reviewed and added HO HEP Reps/Minutes 10 Comments good feedback stretch QL/ LS 2 Supine Exercise Name TA table top tap down to hard, increased umbilical hernia- changed TA july Equipment Used reviewed and added HO HEP Reps/Minutes 2x5 Comments cues for TA facilitiation 1 Supine Exercise Name Bridges- reviewed and added HO HEP Reps/Minutes 2x10 Comments cues to lift tailbone first, then ascending vertebrae, cue TA prom Supine Exercise Name see measurements taken in supine Side left Reps/Minutes added flexion to HEP w/ HO ( 2x 5 reps) Comments shoulder flexion, abd with ER Sidelying Exercises open book Sidelying Exercise Name added to HEP Side bilateral Resistance AROM- long arm vs hand on head Reps/Minutes x5, 1 breath end range tolerance Comments little tension post L shld- good TS mob and UE ROM tolerance range Sitting Exercises sit<>stands Sitting Exercise Name arms across chest- added to HEP Reps/Minutes x5 Comments added to HEP- provided HO Standing Exercises rows Standing Exercise Name discussed HEP not performed Resistance #3 t band Reps/Minutes 2x10 Manual Therapy Treatment Soft Tissue Mobilization 1 Body Location anterior or lateral L shoulder Mobilization Type Myofascial Release,Sustained Pressure,Trigger Point Release Intensity/Depth Moderate Body Position Hooklying Comments left Joint Mobilizations 3 Joint L shld GH joint Direction posterior, inferior glide Grade II Body Position Hooklying Reps/Duration 2 min Comments good feedback response Manual Techniques 1 Type L shoulder PROM Body Position Hooklying Comments flexion and abduction then took measurements- discomfort- anterior pec attachment onto humerus and posterior,middle deltoid- lessened little post manual Self-Care/Home Management Treatment Education Patient Education Body Mechanics,Joint Protection,Pain Management, Posture Other Education Discussed use of pillows between LEs, front between arms, small folded towel under lateral ribcage/ scapula in sidelying for comfort decrease pain on shld, LB. Responded well to support and will incorporate at home. PT-OP-R Modalities Start: 01/16/21 08:12 Freq: Status: Active Protocol: Document 03/14/21 09:45 AMB (Rec: 03/15/21 13:29 AMB [email or web address]) Electric Stimulation Electric Stimulation Interferential Current (IFC) Body Location L neck/shoulder Duration (Minutes) 15 Patient Position Hooklying Combined With Heat/Cold Hot Pack PT-OP-T Assessment and Plan Start: 01/16/21 08:12 Freq: Status: Active Protocol: Document 03/24/21 10:30 SP (Rec: 03/24/21 12:00 SP [id number]) Physical Therapy Assessment Goals Three Impairment Shoulder pain Short Term Goal (STG) Doreen will improve her left shoulder flexion arom to 150 degrees. 03/24/21: supine AROM: FF 147*, ABD 110*, 45 deg ABD during ER: 55* STG Duration 4 weeks-03/24/21- not yet met Corsets Salesperson Goal (LTG) Doreen will sleep on her left shoulder without an increase in her baseline pain. LTG Duration 8 weeks 03/14-- not yet met Two Impairment Cervical rotation Short Term Goal (STG) Doreen will improve her cervical rotation arom to 60 degrees bilaterally. STG Duration MET Corsets Salesperson Goal (LTG) Doreen will rotate her head to check her blind spot without an increase in her baseline pain. 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 STG Duration 4 weeks 03/14- progress made Assessment Summary Assessment Pt tx focused on L shld mobility with noted some discomfort- able progress ROM 147 deg supine, TA strengthening review due to not recalling performing any from last tx, improved and wanted HO for home recall and found helpful for LB painfree before getting out of bed in am. Initiated sit<>stands for mobility standing strengthening due to notices uses arms at home, able to perform arms across chest this tx with cues for hip hinge with ease, provided HO for recall. Pt states found all ther ex today helpful to continue at home to progress her encouragement in activity back to pre COVID. Understands benefits described doing on own important to improve outside of PT tx. Physical Therapy Plan Frequency and Duration Frequency of Treatment 2x/Week Duration of Treatment 8 weeks Plan of Care Start Date 03/14/21 Plan of Care End Date 05/02/21 Therapeutic Interventions Therapeutic Interventions Home Exercise Program,Joint Mobilizations,Manual Therapy, Neuromuscular Re-education, Self-Care/Home Management, Therapeutic Activities, Therapeutic Exercises Modalities Electric Stimulation,Hot Packs Next Visit Focus/Plan Next Note Type Treatment Note Next Visit Plan Recheck: supine shld flexion and TA, side clam/ open book, sit<>Stands, shld TB HEP. POC: Continue to progress shoulder range and core stability.
--- NOTE | 2021-03-28 15:46 | PT.OTN ---
Current Diagnoses Pain in left shoulder (03/28/21) Cervicalgia (03/28/21) Dorsalgia, unspecified (03/28/21) Physical Therapy Treatment Note PT-OP-A Visit Information Start: 01/16/21 08:12 Freq: Status: Active Protocol: Document 03/28/21 12:59 AMB (Rec: 03/28/21 14:14 AMB [id number]) Out-Patient Physical Therapy Visit Information Visit Information Visit Type Treatment Note Visit Start Time 13:00 Visit Stop Time 13:45 Total Visit Minutes 45 Visit Number 12 PT-OP-B Current Condition Start: 01/16/21 08:12 Freq: Status: Active Protocol: Document 01/26/21 13:02 AMB (Rec: 01/26/21 13:14 AMB [id number]) Current Condition History of Current Condition Onset Date 4 months ago Current Complaints L neck/shoulder pain, chronic LBP History of Current Condition 3-4 months, woke up with a stiff neck. Sleeping on the left shoulder is painful. Difficulty with looking behind while parking due to restricted cervical rotation which is important because (R eye diminished vision for 5 years). Pt reports 1-2 falls in the last 6 months. Chronic low back pain with standing for 15 minutes- more chronic. Pain has been staying the same since onset. Pt is caregiver for adult with Down Syndrome. Treatment Goals Patient/Caregiver Goals Reduce L shoulder/neck/LBP. LBP limits standing, neck pain limits rotation and looking up after looking down, shoulder limits sleeping. Prior Functional Status Baseline Function- ADL's Independent Baseline Function- Mobility Independent Current Functional Impairments (Reported) Functional Limitations- ADL's Impaired cervical rotation, sleeping, standing as above PT-OP-C Subjective Start: 01/16/21 08:12 Freq: Status: Active Protocol: Document 03/28/21 12:59 AMB (Rec: 03/28/21 14:14 AMB [id number]) OP-PT Subjective Patient Comments Patient Comments Pt reports pain/stiffness with reaching back behind back to wash back (IR). PT-OP-J Posture/Palpation/Skin Start: 01/16/21 08:12 Freq: Status: Active Protocol: Document 01/26/21 13:00 AMB (Rec: 01/27/21 16:24 AMB [email or web address]) Palpation Assessment Location One Palpation Location L neck/shoulder Palpation Findings Soft Tissue Tightness,Spasm, Muscle Guarding,Tenderness PT-OP-K Range of Motion Start: 01/16/21 08:12 Freq: Status: Active Protocol: Document 03/24/21 10:30 SP (Rec: 03/24/21 12:00 SP [id number]) Shoulder Goniometric Range of Motion Shoulder Left Active Shoulder ROM WFL No Testing Position Supine Flexion 147 Abduction 110 External Rotation at 45 degrees 55 Abduction Comments pain over posterolateral L shld end feel(posterior deltoid area extends down to distal attachment), improves ROM and lessening discomfort with reps. PT-OP-Q Treatments Start: 01/16/21 08:12 Freq: Status: Active Protocol: Document 03/28/21 12:59 AMB (Rec: 03/28/21 14:14 AMB [id number]) Therapeutic Exercises Supine Exercises 2 Supine Exercise Name TA march Equipment Used reviewed and added HO HEP Reps/Minutes 2x5 Comments cues for TA facilitiation Sitting Exercises sit<>stands Sitting Exercise Name arms across chest- added to HEP Reps/Minutes x5 Comments added to HEP- provided HO 3 Sitting Exercise Name pulleys Equipment Used 5' Comments flexion and scaption, added IR Manual Therapy Treatment Soft Tissue Mobilization 1 Body Location anterior or lateral L shoulder Mobilization Type Myofascial Release,Sustained Pressure,Trigger Point Release Intensity/Depth Moderate Body Position Hooklying Comments left Joint Mobilizations 3 Joint L shld GH joint Direction posterior, inferior glide Grade II Body Position Hooklying Reps/Duration 2 min Comments good feedback response PT-OP-R Modalities Start: 01/16/21 08:12 Freq: Status: Active Protocol: Document 03/14/21 09:45 AMB (Rec: 03/15/21 13:29 AMB [email or web address]) Electric Stimulation Electric Stimulation Interferential Current (IFC) Body Location L neck/shoulder Duration (Minutes) 15 Patient Position Hooklying Combined With Heat/Cold Hot Pack PT-OP-T Assessment and Plan Start: 01/16/21 08:12 Freq: Status: Active Protocol: Document 03/28/21 12:59 AMB (Rec: 03/28/21 14:14 AMB [id number]) Physical Therapy Assessment Goals Three Impairment Shoulder pain Short Term Goal (STG) Doreen will improve her left shoulder flexion arom to 150 degrees. 03/24/21: supine AROM: FF 147*, ABD 110*, 45 deg ABD during ER: 55* STG Duration 4 weeks-03/24/21- not yet met Drag Sawyer Goal (LTG) Doreen will sleep on her left shoulder without an increase in her baseline pain. LTG Duration 8 weeks 03/14-- not yet met Two Impairment Cervical rotation Short Term Goal (STG) Doreen will improve her cervical rotation arom to 60 degrees bilaterally. STG Duration MET Care Home Goal (LTG) Doreen will rotate her head to check her blind spot without an increase in her baseline pain. 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 STG Duration 4 weeks 03/14- progress made Assessment Summary Assessment Doreen's shoulder is the most affected of the body parts we have been working. Reviewed core stabilization and shoulder IR. Physical Therapy Plan Next Visit Focus/Plan Next Note Type Treatment Note Next Visit Plan Recheck: supine shld flexion and TA, side clam/ open book, sit<>Stands, shld TB HEP. POC: Continue to progress shoulder range and core stability.
--- NOTE | 2021-04-04 15:46 | PT.OTN ---
Current Diagnoses Pain in left shoulder (04/04/21) Cervicalgia (04/04/21) Dorsalgia, unspecified (04/04/21) Physical Therapy Treatment Note PT-OP-A Visit Information Start: 01/16/21 08:12 Freq: Status: Active Protocol: Document 04/04/21 13:00 AMB (Rec: 04/04/21 15:45 AMB [email or web address]) Out-Patient Physical Therapy Visit Information Visit Information Visit Type Treatment Note Visit Start Time 13:00 Visit Stop Time 13:45 Total Visit Minutes 45 Visit Number 13 PT-OP-B Current Condition Start: 01/16/21 08:12 Freq: Status: Active Protocol: Document 01/26/21 13:02 AMB (Rec: 01/26/21 13:14 AMB [id number]) Current Condition History of Current Condition Onset Date 4 months ago Current Complaints L neck/shoulder pain, chronic LBP History of Current Condition 3-4 months, woke up with a stiff neck. Sleeping on the left shoulder is painful. Difficulty with looking behind while parking due to restricted cervical rotation which is important because (R eye diminished vision for 5 years). Pt reports 1-2 falls in the last 6 months. Chronic low back pain with standing for 15 minutes- more chronic. Pain has been staying the same since onset. Pt is caregiver for adult with Down Syndrome. Treatment Goals Patient/Caregiver Goals Reduce L shoulder/neck/LBP. LBP limits standing, neck pain limits rotation and looking up after looking down, shoulder limits sleeping. Prior Functional Status Baseline Function- ADL's Independent Baseline Function- Mobility Independent Current Functional Impairments (Reported) Functional Limitations- ADL's Impaired cervical rotation, sleeping, standing as above PT-OP-C Subjective Start: 01/16/21 08:12 Freq: Status: Active Protocol: Document 03/28/21 12:59 AMB (Rec: 03/28/21 14:14 AMB [id number]) OP-PT Subjective Patient Comments Patient Comments Pt reports pain/stiffness with reaching back behind back to wash back (IR). PT-OP-J Posture/Palpation/Skin Start: 01/16/21 08:12 Freq: Status: Active Protocol: Document 01/26/21 13:00 AMB (Rec: 01/27/21 16:24 AMB [email or web address]) Palpation Assessment Location One Palpation Location L neck/shoulder Palpation Findings Soft Tissue Tightness,Spasm, Muscle Guarding,Tenderness PT-OP-K Range of Motion Start: 01/16/21 08:12 Freq: Status: Active Protocol: Document 03/24/21 10:30 SP (Rec: 03/24/21 12:00 SP [id number]) Shoulder Goniometric Range of Motion Shoulder Left Active Shoulder ROM WFL No Testing Position Supine Flexion 147 Abduction 110 External Rotation at 45 degrees 55 Abduction Comments pain over posterolateral L shld end feel(posterior deltoid area extends down to distal attachment), improves ROM and lessening discomfort with reps. PT-OP-Q Treatments Start: 01/16/21 08:12 Freq: Status: Active Protocol: Document 04/04/21 13:00 AMB (Rec: 04/04/21 15:45 AMB [email or web address]) Therapeutic Exercises Supine Exercises 2 Supine Exercise Name TA march Equipment Used reviewed and added HO HEP Reps/Minutes 2x5 Comments cues for TA facilitiation Sitting Exercises sit<>stands Sitting Exercise Name arms across chest- added to HEP Reps/Minutes x5 Comments added to HEP- provided HO Standing Exercises Er/IR Resistance #1 band Reps/Minutes 2x10 ea rows Resistance #3 t band Reps/Minutes 2x10 Manual Therapy Treatment Soft Tissue Mobilization 1 Body Location L scapula Mobilization Type Myofascial Release,Sustained Pressure,Trigger Point Release Intensity/Depth Moderate Body Position Hooklying Comments left Joint Mobilizations 2 Joint GH inferior and AP Grade III Body Position Hooklying 1 Joint C4-C6 Direction UPA Grade II Body Position Hooklying PT-OP-R Modalities Start: 01/16/21 08:12 Freq: Status: Active Protocol: Document 03/14/21 09:45 AMB (Rec: 03/15/21 13:29 AMB [email or web address]) Electric Stimulation Electric Stimulation Interferential Current (IFC) Body Location L neck/shoulder Duration (Minutes) 15 Patient Position Hooklying Combined With Heat/Cold Hot Pack PT-OP-T Assessment and Plan Start: 01/16/21 08:12 Freq: Status: Active Protocol: Document 04/04/21 13:00 AMB (Rec: 04/04/21 15:45 AMB [email or web address]) Physical Therapy Assessment Goals Three Impairment Shoulder pain Short Term Goal (STG) Doreen will improve her left shoulder flexion arom to 150 degrees. 03/24/21: supine AROM: FF 147*, ABD 110*, 45 deg ABD during ER: 55* STG Duration 4 weeks-03/24/21- not yet met [facility] Goal (LTG) Doreen will sleep on her left shoulder without an increase in her baseline pain. LTG Duration 8 weeks 03/14-- not yet met Two Impairment Cervical rotation Short Term Goal (STG) Doreen will improve her cervical rotation arom to 60 degrees bilaterally. STG Duration MET [facility] Goal (LTG) Doreen will rotate her head to check her blind spot without an increase in her baseline pain. 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 STG Duration 4 weeks 03/14- progress made Assessment Summary Assessment Worked on neck/shoulder which are impacting each other. Tension at levator scap/ UT/ scapular muscles. Physical Therapy Plan Next Visit Focus/Plan Next Note Type Treatment Note Next Visit Plan Pt to bring in written HEP and we will organize it, finalize it
--- NOTE | 2021-04-11 14:58 | PT.OTN ---
Current Diagnoses Pain in left shoulder (04/11/21) Cervicalgia (04/11/21) Dorsalgia, unspecified (04/11/21) Physical Therapy Treatment Note PT-OP-A Visit Information Start: 01/16/21 08:12 Freq: Status: Active Protocol: Document 04/11/21 09:45 AMB (Rec: 04/11/21 10:22 AMB [id number]) Out-Patient Physical Therapy Visit Information Visit Information Visit Type Treatment Note Visit Start Time 09:45 Visit Stop Time 10:30 Total Visit Minutes 45 Visit Number 14 PT-OP-B Current Condition Start: 01/16/21 08:12 Freq: Status: Active Protocol: Document 01/26/21 13:02 AMB (Rec: 01/26/21 13:14 AMB [id number]) Current Condition History of Current Condition Onset Date 4 months ago Current Complaints L neck/shoulder pain, chronic LBP History of Current Condition 3-4 months, woke up with a stiff neck. Sleeping on the left shoulder is painful. Difficulty with looking behind while parking due to restricted cervical rotation which is important because (R eye diminished vision for 5 years). Pt reports 1-2 falls in the last 6 months. Chronic low back pain with standing for 15 minutes- more chronic. Pain has been staying the same since onset. Pt is caregiver for adult with Down Syndrome. Treatment Goals Patient/Caregiver Goals Reduce L shoulder/neck/LBP. LBP limits standing, neck pain limits rotation and looking up after looking down, shoulder limits sleeping. Prior Functional Status Baseline Function- ADL's Independent Baseline Function- Mobility Independent Current Functional Impairments (Reported) Functional Limitations- ADL's Impaired cervical rotation, sleeping, standing as above PT-OP-C Subjective Start: 01/16/21 08:12 Freq: Status: Active Protocol: Document 04/11/21 09:45 AMB (Rec: 04/11/21 14:56 AMB [email or web address]) OP-PT Subjective Patient Comments Patient Comments Doreen is continuing to see stiffness at left shoulder and neck. Overall pain is better , but shoulder can still painfull click. PT-OP-J Posture/Palpation/Skin Start: 01/16/21 08:12 Freq: Status: Active Protocol: Document 01/26/21 13:00 AMB (Rec: 01/27/21 16:24 AMB [email or web address]) Palpation Assessment Location One Palpation Location L neck/shoulder Palpation Findings Soft Tissue Tightness,Spasm, Muscle Guarding,Tenderness PT-OP-K Range of Motion Start: 01/16/21 08:12 Freq: Status: Active Protocol: Document 03/24/21 10:30 SP (Rec: 03/24/21 12:00 SP [id number]) Shoulder Goniometric Range of Motion Shoulder Left Active Shoulder ROM WFL No Testing Position Supine Flexion 147 Abduction 110 External Rotation at 45 degrees 55 Abduction Comments pain over posterolateral L shld end feel(posterior deltoid area extends down to distal attachment), improves ROM and lessening discomfort with reps. PT-OP-Q Treatments Start: 01/16/21 08:12 Freq: Status: Active Protocol: Document 04/11/21 09:45 AMB (Rec: 04/11/21 14:55 AMB [email or web address]) Therapeutic Exercises Sidelying Exercises open book Sidelying Exercise Name added to HEP Side bilateral Resistance AROM- long arm vs hand on head Reps/Minutes x5, 1 breath end range tolerance Comments little tension post L shld- good TS mob and UE ROM tolerance range 1 Sidelying Exercise Name sleeper stretch Reps/Minutes 15x4 Standing Exercises pec stretch Reps/Minutes 30x4 Comments with modifications lower arm to avoid pain Er/IR Resistance #1 band Reps/Minutes 2x10 ea rows Resistance #3 t band Reps/Minutes 2x10 Manual Therapy Treatment Soft Tissue Mobilization 1 Body Location L scapula/ UT Mobilization Type Myofascial Release,Sustained Pressure,Trigger Point Release Intensity/Depth Moderate Body Position Hooklying Comments left PT-OP-R Modalities Start: 01/16/21 08:12 Freq: Status: Active Protocol: Document 03/14/21 09:45 AMB (Rec: 03/15/21 13:29 AMB [email or web address]) Electric Stimulation Electric Stimulation Interferential Current (IFC) Body Location L neck/shoulder Duration (Minutes) 15 Patient Position Hooklying Combined With Heat/Cold Hot Pack PT-OP-T Assessment and Plan Start: 01/16/21 08:12 Freq: Status: Active Protocol: Document 04/11/21 09:45 AMB (Rec: 04/11/21 10:22 AMB [id number]) Physical Therapy Assessment Goals Three Impairment Shoulder pain Short Term Goal (STG) Doreen will improve her left shoulder flexion arom to 150 degrees. 03/24/21: supine AROM: FF 147*, ABD 110*, 45 deg ABD during ER: 55* STG Duration 4 weeks-03/24/21- not yet met Social Work Lecturer Goal (LTG) Doreen will sleep on her left shoulder without an increase in her baseline pain. LTG Duration 8 weeks 03/14-- not yet met Two Impairment Cervical rotation Short Term Goal (STG) Doreen will improve her cervical rotation arom to 60 degrees bilaterally. STG Duration MET Social Work Lecturer Goal (LTG) Doreen will rotate her head to check her blind spot without an increase in her baseline pain. 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 STG Duration 4 weeks 03/14- progress made Assessment Summary Assessment Continue to progress ROM training for left shoulder. Pt would benefit from continued core stabilization and ROM work with her left shoulder. Physical Therapy Plan Next Visit Focus/Plan Next Note Type Treatment Note Next Visit Plan Pt to bring in written HEP and we will organize it, finalize it
--- NOTE | 2021-04-18 15:52 | PT.OTN ---
Current Diagnoses Pain in left shoulder (04/18/21) Cervicalgia (04/18/21) Dorsalgia, unspecified (04/18/21) Physical Therapy Treatment Note PT-OP-A Visit Information Start: 01/16/21 08:12 Freq: Status: Active Protocol: Document 04/18/21 13:00 AMB (Rec: 04/18/21 15:51 AMB [email or web address]) Out-Patient Physical Therapy Visit Information Visit Information Visit Type Treatment Note Visit Start Time 13:00 Visit Stop Time 13:45 Total Visit Minutes 45 Visit Number 15 PT-OP-B Current Condition Start: 01/16/21 08:12 Freq: Status: Active Protocol: Document 01/26/21 13:02 AMB (Rec: 01/26/21 13:14 AMB [id number]) Current Condition History of Current Condition Onset Date 4 months ago Current Complaints L neck/shoulder pain, chronic LBP History of Current Condition 3-4 months, woke up with a stiff neck. Sleeping on the left shoulder is painful. Difficulty with looking behind while parking due to restricted cervical rotation which is important because (R eye diminished vision for 5 years). Pt reports 1-2 falls in the last 6 months. Chronic low back pain with standing for 15 minutes- more chronic. Pain has been staying the same since onset. Pt is caregiver for adult with Down Syndrome. Treatment Goals Patient/Caregiver Goals Reduce L shoulder/neck/LBP. LBP limits standing, neck pain limits rotation and looking up after looking down, shoulder limits sleeping. Prior Functional Status Baseline Function- ADL's Independent Baseline Function- Mobility Independent Current Functional Impairments (Reported) Functional Limitations- ADL's Impaired cervical rotation, sleeping, standing as above PT-OP-C Subjective Start: 01/16/21 08:12 Freq: Status: Active Protocol: Document 04/18/21 13:00 AMB (Rec: 04/18/21 15:51 AMB [email or web address]) OP-PT Subjective Patient Comments Patient Comments Doreen brings in her HEP to review. PT-OP-J Posture/Palpation/Skin Start: 01/16/21 08:12 Freq: Status: Active Protocol: Document 01/26/21 13:00 AMB (Rec: 01/27/21 16:24 AMB [email or web address]) Palpation Assessment Location One Palpation Location L neck/shoulder Palpation Findings Soft Tissue Tightness,Spasm, Muscle Guarding,Tenderness PT-OP-K Range of Motion Start: 01/16/21 08:12 Freq: Status: Active Protocol: Document 04/18/21 13:33 AMB (Rec: 04/18/21 13:39 AMB [id number]) Shoulder Goniometric Range of Motion Shoulder Left Active Flexion 147 Abduction 120 PT-OP-Q Treatments Start: 01/16/21 08:12 Freq: Status: Active Protocol: Document 04/18/21 13:00 AMB (Rec: 04/18/21 15:51 AMB [email or web address]) Self-Care/Home Management Treatment Activities Self-Care/Home Management Activities Organized HEP- reviewed all and discussed at length to help pt to be more consistent. HEP: pec, levator scap stretches, shoulder rolls; wall pushup, t band ER, IR, rows; clamshell, sleeper stretch, open book, bride, supine march, LTR, AAROM shoulder flexion, sit to stand . PT-OP-R Modalities Start: 01/16/21 08:12 Freq: Status: Active Protocol: Document 03/14/21 09:45 AMB (Rec: 03/15/21 13:29 AMB [email or web address]) Electric Stimulation Electric Stimulation Interferential Current (IFC) Body Location L neck/shoulder Duration (Minutes) 15 Patient Position Hooklying Combined With Heat/Cold Hot Pack PT-OP-T Assessment and Plan Start: 01/16/21 08:12 Freq: Status: Active Protocol: Document 04/18/21 13:00 AMB (Rec: 04/18/21 15:51 AMB [email or web address]) Physical Therapy Assessment Goals Three Impairment Shoulder pain Short Term Goal (STG) Doreen will improve her left shoulder flexion arom to 150 degrees. 03/24/21: supine AROM: FF 147*, ABD 110*, 45 deg ABD during ER: 55* STG Duration 4 weeks-03/24/21- not yet met [facility] Goal (LTG) Doreen will sleep on her left shoulder without an increase in her baseline pain. LTG Duration 8 weeks 03/14-- not yet met Two Impairment Cervical rotation Short Term Goal (STG) Doreen will improve her cervical rotation arom to 60 degrees bilaterally. STG Duration MET Systems Administration Analyst Goal (LTG) Doreen will rotate her head to check her blind spot without an increase in her baseline pain. 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 STG Duration 4 weeks 03/14- progress made Assessment Summary Assessment Reviewed HEP - pt has been having a hard time with getting to her exercises, so organized them forher, and she will do half of them every other day. Physical Therapy Plan Next Visit Focus/Plan Next Note Type Discharge Summary
--- NOTE | 2021-04-21 11:43 | PT.OTN ---
Current Diagnoses Pain in left shoulder (04/21/21) Cervicalgia (04/21/21) Dorsalgia, unspecified (04/21/21) Physical Therapy Treatment Note PT-OP-A Visit Information Start: 01/16/21 08:12 Freq: Status: Active Protocol: Document 04/21/21 11:15 AMB (Rec: 04/21/21 11:43 AMB [id number]) Out-Patient Physical Therapy Visit Information Visit Information Visit Type Discharge Summary Visit Start Time 10:30 Visit Stop Time 11:15 Total Visit Minutes 45 Visit Number 16 PT-OP-B Current Condition Start: 01/16/21 08:12 Freq: Status: Active Protocol: Document 01/26/21 13:02 AMB (Rec: 01/26/21 13:14 AMB [id number]) Current Condition History of Current Condition Onset Date 4 months ago Current Complaints L neck/shoulder pain, chronic LBP History of Current Condition 3-4 months, woke up with a stiff neck. Sleeping on the left shoulder is painful. Difficulty with looking behind while parking due to restricted cervical rotation which is important because (R eye diminished vision for 5 years). Pt reports 1-2 falls in the last 6 months. Chronic low back pain with standing for 15 minutes- more chronic. Pain has been staying the same since onset. Pt is caregiver for adult with Down Syndrome. Treatment Goals Patient/Caregiver Goals Reduce L shoulder/neck/LBP. LBP limits standing, neck pain limits rotation and looking up after looking down, shoulder limits sleeping. Prior Functional Status Baseline Function- ADL's Independent Baseline Function- Mobility Independent Current Functional Impairments (Reported) Functional Limitations- ADL's Impaired cervical rotation, sleeping, standing as above PT-OP-C Subjective Start: 01/16/21 08:12 Freq: Status: Active Protocol: Document 04/21/21 11:15 AMB (Rec: 04/21/21 11:43 AMB [id number]) OP-PT Subjective Patient Comments Patient Comments Doreen has not yet done her HEP as scheduled at last PT appointment. PT-OP-J Posture/Palpation/Skin Start: 01/16/21 08:12 Freq: Status: Active Protocol: Document 01/26/21 13:00 AMB (Rec: 01/27/21 16:24 AMB [email or web address]) Palpation Assessment Location One Palpation Location L neck/shoulder Palpation Findings Soft Tissue Tightness,Spasm, Muscle Guarding,Tenderness PT-OP-K Range of Motion Start: 01/16/21 08:12 Freq: Status: Active Protocol: Document 04/18/21 13:33 AMB (Rec: 04/18/21 13:39 AMB [id number]) Shoulder Goniometric Range of Motion Shoulder Left Active Flexion 147 Abduction 120 PT-OP-Q Treatments Start: 01/16/21 08:12 Freq: Status: Active Protocol: Document 04/21/21 11:15 AMB (Rec: 04/21/21 11:43 AMB [id number]) Manual Therapy Treatment Soft Tissue Mobilization 1 Body Location L scapula/ UT Mobilization Type Myofascial Release,Sustained Pressure,Trigger Point Release Intensity/Depth Moderate Body Position Hooklying Comments left Joint Mobilizations 1 Joint C4-C6 Direction UPA Grade II Body Position Hooklying Manual Techniques 1 Type L shoulder PROM Body Position Hooklying Comments flexion, abd, ER, IR PT-OP-R Modalities Start: 01/16/21 08:12 Freq: Status: Active Protocol: Document 03/14/21 09:45 AMB (Rec: 03/15/21 13:29 AMB [email or web address]) Electric Stimulation Electric Stimulation Interferential Current (IFC) Body Location L neck/shoulder Duration (Minutes) 15 Patient Position Hooklying Combined With Heat/Cold Hot Pack PT-OP-T Assessment and Plan Start: 01/16/21 08:12 Freq: Status: Active Protocol: Document 04/21/21 11:15 AMB (Rec: 04/21/21 11:43 AMB [id number]) Physical Therapy Assessment Goals Three Impairment Shoulder pain Short Term Goal (STG) Doreen will improve her left shoulder flexion arom to 150 degrees. 03/24/21: supine AROM: FF 147*, ABD 110*, 45 deg ABD during ER: 55* STG Duration NOT MET Porcelain Enamel Repairer Goal (LTG) Doreen will sleep on her left shoulder without an increase in her baseline pain. LTG Duration NOT MET Two Impairment Cervical rotation Short Term Goal (STG) Doreen will improve her cervical rotation arom to 60 degrees bilaterally. STG Duration MET Fci Goal (LTG) Doreen will rotate her head to check her blind spot without an increase in her baseline pain. LTG Duration MET One Impairment Standing tolerance Short Term Goal (STG) Doreen will stand for 30 minutes to cook night without an increase in her baseline low back pain. STG Duration MET Assessment Summary Assessment Doreen has met some of her PT goals. Her shoulder is the biggest issue at this point, and has only somewhat improved . However she admits she has not been very consistent with her home exercises. She will benefit from her HEP, but will likely struggle with consistency in the future. Encouraged to follow up with her physician regarding her shoulder if it continues to be an issue. Her neck and back are better but can flare up at times.
== END 2021-06-20 08:58 ==
LOC: PHYS 10:30
PROVIDERS: Family Provider Family Medicine; PCP Family Medicine; Referring Provider Family Medicine; Visit Provider Family Medicine
DX: M25.512 Pain in left shoulder (principal); M54.2 Cervicalgia; M54.9 Dorsalgia, unspecified
CPT/HCPCS: 97014; 97110; 97140; 97161; 97535; G0283

== ENCOUNTER → 2021-08-28 10:03 | Outpatient (CLI) | payer MEDICARE, SELFPAY ==
[2019-08-24 15:10] VITALS: BMI 28.5
[2021-08-28 10:41] LABS: COVID19 -Nasal RAPID Negative (Negative)
== END ==
PROVIDERS: Family Provider Family Medicine; PCP Family Medicine; Visit Provider Surgery
DX: Z01.812 Encounter for preprocedural laboratory examination (principal); Z20.822 Contact with and (suspected) exposure to COVID-19
CPT/HCPCS: 87635; C9803

== ENCOUNTER 2021-08-29 08:53 | Emergency (ER) | payer MEDICARE, SELFPAY ==
[2019-08-24 15:10] VITALS: BMI 28.5
[2021-08-29 09:14] VITALS: BP 140/92; PULSE 67; RESP 18; TEMP 36.3; O2SAT 99; BMI 26.5
--- NOTE | 2021-08-29 09:24 | ED_ITS ---
HPI - Abdominal Pain General Chief Complaint: Abdominal Pain Stated Complaint: Stomach cramps from prep Time Seen by Provider: 08/29/21 09:06 Source: patient Mode of arrival: Ambulatory History of Present Illness HPI narrative: 81F former smoker with history of COPD, stage 3 chronic kidney disease and prior colon polyp presents with, nausea and vomiting over the morning. She was scheduled for a routine colonoscopy and her symptoms started after taking her bowel prep. She denies any provocation or palliation of her abdominal cramping but states that seems to come and go in waves without any obvious pattern. She has had no bowel movement or loose stools. She denies any fever or chills. She states very clearly her symptoms started after taking the bowel prep. She denies dysuria, frequency or urgency. She feels fatigued and lightheaded Related Data Home Medications Medication Instructions Recorded Confirmed Multivitamin, Minerals, and 1 tab PO Q DAY #0 12/26/10 02/13/21 (#CENTRUM SILVER) brimonidine 0.2 %-timolol 0.5 % 1 drp OPHTH BID #0 11/15/16 02/13/21 eye drops (Combigan) carboxymethylcellulose sodium 0.5 15 ml TID #0 11/15/16 02/13/21 % eye drops (Refresh Tears) latanoprost 0.005 % eye drops 1 drp OPHTH HS #0 11/15/16 02/13/21 (Xalatan) white petrolatum-mineral oil 56.8 1 applic OPHTH PRN #0 11/15/16 02/13/21 %-42.5 % eye ointment (Refresh Lacri-Lube) cholecalciferol (vitamin D3) 50 2,000 unit PO DAILY 03/31/19 02/13/21 mcg (2,000 unit) capsule Previous Rx's Medication Instructions Recorded mupirocin 2 % topical ointment 1 applic TOPICAL TID 7 Days #30 g 09/20/20 losartan 25 mg tablet See Rx Instructions .ROUTE 12/26/20 .COMPLEX #90 tab sertraline 50 mg tablet See Rx Instructions .ROUTE 12/26/20 .COMPLEX #90 tab albuterol sulfate 90 mcg/actuation 2 puff INHALATION Q6H PRN #6.7 g 04/07/21 aerosol inhaler cyanocobalamin (vitamin B-12) 1,000 mcg IM [id number] #1 vial 05/02/21 1,000 mcg/mL injection solution simvastatin 40 mg tablet See Rx Instructions .ROUTE 05/08/21 .COMPLEX #90 tab tamoxifen 20 mg tablet 20 mg PO DAILY #90 tab 05/11/21 triamterene 37.5 1 tab PO QAM #90 tab 07/11/21 mg-hydrochlorothiazide 25 mg tablet sodium,potassium,mag sulfates 17.5 See Rx Instructions PO .COMPLEX 07/21/21 gram-3.13 gram-1.6 gram oral soln #354 ml (Suprep Bowel Prep Kit) ondansetron 4 mg disintegrating 4 mg PO TID-QID PRN #10 tab 08/29/21 tablet Allergies Allergy/AdvReac Type Severity Reaction Status Date / Time Sulfa (Sulfonamide Allergy Mild BLOOD SHOT Verified 08/29/21 09:17 Antibiotics) EYES AND [SULFA (SULFONAMIDE HEADACHE ANTIBIOTICS)] Review of Systems Review of Systems Narrative: GENERAL: See HPI HEENT: Denies sinus pain, ear pain, sore throat, difficulty swallowing, dizziness. RESPIRATORY: Denies dyspnea, cough, wheezing, hemoptysis, sputum. CARDIOVASCULAR: Denies chest pain, palpitations, orthopnea, edema, GASTROINTESTINAL: See HPI : Denies dysuria, frequency, incontinence, hematuria, urinary retention. MUSCULOSKELETAL: denies weakness, joint pain, or bony pain SKIN: Denies rash, skin lesions, or other NEUROLOGIC: Denies weakness, headache, numbness, change in speech, confusion, seizures, incoordination. PSYCHIATRIC: No concerning psychosocial issues. 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) Alcohol use Cataracts, bilateral Chicken pox Chronic obstructive pulmonary disease (06/08/15) Cobalamin deficiency (12/26/10) Colon polyps Essential hypertension (04/15/12) Glaucoma (03/27/13) Glucose intolerance Hemorrhoid (~2004) History of adenomatous polyp of colon Hyperlipidemia Malignant neoplasm of upper-outer quadrant of right breast in female, estrogen receptor positive (11/02/16) Measles Seborrheic keratosis Sleep apnea (~1994) Stage 3 chronic kidney disease (09/10/14) Surgical History History of lithotripsy (~1986) Perirectal abscess (~1957) Pilonidal cyst (~1959) S/P right mastectomy Family History Father Colorectal cancer Esophageal cancer Grandfather BC (bronchogenic carcinoma) Cancer Grandmother Heart disease Sister Cancer Hypotension Disseminated intravascular coagulation Hepatic failure Mother Breast cancer Social History marital status: Smoking Status: Former smoker Tobacco: How many years used: 1 alcohol intake: current substance use type: does not use Smoking Status: Former smoker alcohol intake frequency: 3 or more drinks per day Substance Use Type: does not use Exam Narrative Exam Narrative: GENERAL: [81] year old patient appears stated age. Well-developed patient, in mild distress. Appears uncomfortable HEAD: Atraumatic. Normocephalic. EYES: Pupils equal round and reactive. Extraocular motions intact. No scleral icterus. No injection or drainage. ENT: Nose without bleeding, purulent drainage. Throat without erythema, tonsillar hypertrophy or exudate. Airway patent. NECK: Trachea midline. Non tender CARDIOVASCULAR: Regular rate and rhythm without murmurs, gallops, or rubs. RESPIRATORY: Clear to auscultation. Breath sounds equal bilaterally. No wheezes, rales, or rhonchi. GASTROINTESTINAL: Abdomen soft, non-tender, nondistended. Increased bowel sounds EXTREMITIES: No edema or joint tenderness. BACK: Nontender without deformity or crepitance. No flank tenderness. NEURO: AOx3. SKIN: No rash or erythema of visible areas Initial Vital Signs Initial Vital Signs: Vital Signs Temperature 97.4 F L 08/29/21 09:14 Pulse Rate 67 08/29/21 09:14 Respiratory Rate 18 08/29/21 09:14 Blood Pressure 140/92 H 08/29/21 09:14 Pulse Oximetry 99 08/29/21 09:14 Course Orders Ordered: ED Orders 08/29/21 09:35 Complete Blood Count AUTO DIFF Stat Comprehensive Metabolic Panel Stat Lipase Stat 08/29/21 11:53 Urine Culture Stat Urine Microscopic Stat Discontinued Medications Hyoscyamine (Hyoscyamine 0.125 Mg Tablet) 0.125 mg PO NOW ONE Stop: 08/29/21 10:22 Last Admin: 08/29/21 10:43 Dose: 0.125 mg Documented by: JEAN-PIERRE Sodium Chloride (Normal Saline 0.9%) 1,000 mls @ 1,000 mls/hr IV BOLUS ONE Stop: 08/29/21 10:23 Last Infusion: 08/29/21 10:44 Dose: 0 mls/hr Documented by: JEAN-PIERRE Admin: 08/29/21 09:46 Dose: 1,000 mls/hr Documented by: JEAN-PIERRE Ondansetron HCl (Ondansetron 4 Mg/2 Ml Inj) 4 mg IV NOW ONE Stop: 08/29/21 09:25 Last Admin: 08/29/21 09:46 Dose: 4 mg Documented by: JEAN-PIERRE Pantoprazole Sodium (Pantoprazole 40 Mg Vial) 40 mg IV NOW ONE Stop: 08/29/21 09:25 Last Admin: 08/29/21 09:46 Dose: 40 mg Documented by: JEAN-PIERRE Reevaluation(s) Reevaluation #1: Patient feeling much better after above-stated therapies. She is no longer vomiting, tolerating orals and has had a bowel movement. Vital Signs Vital signs: Vital Signs - 8 hr 08/29/21 09:14 08/29/21 11:39 Temperature 97.4 F L Pulse Rate 67 65 Respiratory Rate 18 18 Blood Pressure 140/92 H 160/65 H Pulse Oximetry 99 94 MDM - Abdominal Pain Lab Data Result diagrams: 08/29/21 09:35 08/29/21 09:35 Labs: Lab Results 08/29/21 08/29/21 08/29/21 Range/Units 09:35 09:35 11:53 WBC 8.9 (4.5-11.0) X10^3/uL RBC 3.63 L (4.0-5.2) X10^6/uL Hgb 13.0 (12.0-16.0) g/dL Hct 37.9 (36-46) % MCV 104.3 H (80-100) fL MCH 35.8 H (26-34) PG MCHC 34.3 (30-36) % RDW 12.3 (11.6-14.8) % Plt Count 219 (150-400) X10^3/uL Neut % (Auto) 86.0 H (50-75) % Lymph % (Auto) 9.0 L (25-40) % Prentiss % (Auto) 4.4 (3-14) % Eos % (Auto) 0.2 L (2-4) % Baso % (Auto) 0.4 (0-2) % Neut # (Auto) 7600 H (3989-5756) /uL Lymph # (Auto) 800 L (4626-9018) /uL Prentiss # (Auto) 400 (0-900) /uL Eos # (Auto) 0 (0-450) /uL Baso # (Auto) 0 (0-100) /uL Sodium 140 (137-145) mmol/L Potassium 3.8 (3.4-5.1) mmol/L Chloride 96 L (98-107) mmol/L Carbon Dioxide 29 (22-32) mmol/L BUN 26 H (7-17) mg/dL Creatinine 1.34 H (0.52-1.04) mg/dL Estimated GFR 40.3 L (>60) mL/min BUN/Creatinine Ratio 19.4 (6-22) Glucose 171 H (80-110) mg/dL Calcium 10.3 H (8.4-10.2) mg/dL Total Bilirubin 1.0 (0.2-1.3) mg/dL AST 36 (14-36) IU/L ALT 20 (<35) IU/L Alkaline Phosphatase 66 (38-126) U/L Total Protein 8.4 H (6.3-8.2) g/dL Albumin 5.1 H (3.5-5.0) g/dL Globulin 3.3 (1.7-4.1) g/dL Albumin/Globulin Ratio 1.5 (1.0-2.8) Lipase 186 (23-300) U/L Urine RBC None seen (0-5/HPF) Urine WBC 5-10/hpf H (0-5/HPF) Ur Squamous Epith Cells 1-5 /hpf (0-5/HPF) Urine Bacteria Moderate (10-30) H (None) Ur Culture Indicated? Specimen cultured Point of care testing: Urine Dip Bedside Urine Glucose 250 mg/dl Bedside Urine Bilirubin - Negative Bedside Urine Ketone + 15 Urine Specific [place] 1.025 Bedside Urine Occult Blood - Negative Bedside Urine pH 6.0 Bedside Urine Protein - Negative Bedside Urine Urobilinogen - Negative Bedside Urine Nitrite - Negative Bedside Urine Leukocytes +/- 15 Esterase Discharge Plan Departure Patient Disposition: Home Clinical Impression: Vomiting, Abdominal cramping Instructions: DI for Abdominal Pain-Adult, DI for Vomiting -- Adult Activity Restrictions/Additional Instructions: *You have been diagnosed with [abdominal cramping and vomiting, most likely secondary to bowel prep. Your physical exam, labs and response to therapies are very reassuring *What to do: *Please continue to take your regular medications as directed. [ x] New medication prescriptions sent to your pharmacy: [[facility] ] [ ] New medication written as a paper prescription [ ] No new medications given *Please follow up with your primary care provider in 2-3 days, call for an appointment. Let them know you were seen in the Emergency Department and that we ask that you be seen in follow up. We will electronically transmit a record of sarath fraga's note if your PCP is in our system *If you do not have a primary care provider please contact the [facility] Resource line at [phone]. They will ask some questions about your medical history and help get you set up with a doctor in the community. *Return to Emergency Department if you should have any new, worsening or concerning symptoms, such as [fever greater than 101 F, shaking chills, worsening pain, persistent vomiting or other bothersome symptoms] Prescriptions: New ondansetron 4 mg tablet,disintegrating 4 mg PO TID-QID PRN (Reason: nausea and vomiting) Qty: 10 0RF No Action cholecalciferol (vitamin D3) 50 mcg (2,000 unit) capsule 2,000 unit PO DAILY 0RF mupirocin 2 % ointment 1 applic topical TID 7 Days Qty: 30 1RF Multivitamin, Minerals, and (#CENTRUM SILVER) 1 tab PO Q DAY Qty: 0 0RF Combigan 0.2 %/0.5 % drops 1 drp OPHTH BID Qty: 0 0RF latanoprost [Xalatan] 0.005 % drops 1 drp OPHTH HS Qty: 0 0RF carboxymethylcellulose sodium [Refresh Tears] 15 ML drops 15 ml TID Qty: 0 0RF Refresh Lacri-Lube 3.5 GM ointment 1 applic OPHTH PRN Qty: 0 0RF sertraline 50 mg tablet See Rx Instructions .ROUTE .COMPLEX Qty: 90 3RF Dose Instruction: TAKE 1 TABLET BY MOUTH DAILY Rx Instructions: TAKE 1 TABLET BY MOUTH DAILY losartan 25 mg tablet See Rx Instructions .ROUTE .COMPLEX Qty: 90 3RF Dose Instruction: TAKE 1 TABLET BY MOUTH DAILY Rx Instructions: TAKE 1 TABLET BY MOUTH DAILY albuterol sulfate 90 mcg/actuation HFA aerosol inhaler 2 puff inhalation Q6H PRN (Reason: shortness of breath or wheezing) Qty: 6.7 5RF cyanocobalamin (vitamin B-12) 1,000 mcg/mL solution 1,000 mcg IM [id number] Qty: 1 5RF simvastatin 40 mg tablet See Rx Instructions .ROUTE .COMPLEX Qty: 90 3RF Dose Instruction: TAKE 1 TABLET BY MOUTH EVERY DAY Rx Instructions: TAKE 1 TABLET BY MOUTH EVERY DAY triamterene-hydrochlorothiazid 37.5-25 mg tablet 1 tab PO QAM Qty: 90 3RF Suprep Bowel Prep Kit 17.5-3.13-1.6 gram recon soln See Rx Instructions PO .COMPLEX Qty: 354 0RF Rx Instructions: Follow instructions from doctor's office tamoxifen 20 mg Tablet 20 mg PO DAILY Qty: 90 1RF Referrals: Lilian Whitehead DO [Primary Care Provider] -
[2021-08-29] MEDS: ONDANSETRON 4 MG/2 ML INJ IV (09:46)
[2021-08-29] MEDS: PANTOPRAZOLE 40 MG VIAL IV (09:46)
[2021-08-29] MEDS: SODIUM CHLORIDE 0.9% 1,000 ML 1000 ML IV (09:46)
[2021-08-29 09:47] LABS: Add Manual Diff / Slide Review NO; Basophils Absolute Auto 0 /uL (0-100); Basophils Percent Auto 0.4 % (0-2); Eosinophils Absolute Auto 0 /uL (0-450); Eosinophils Percent Auto 0.2 % (2-4); Hematocrit 37.9 % (36-46); Lymphocytes Absolute Auto 800 /uL (1100-4500); Mean Corpuscular HGB Conc 34.3 % (30-36); Mean Corpuscular Hemoglobin 35.8 PG (26-34); Mean Corpuscular Volume 104.3 fL (80-100); Monocytes Absolute Auto 400 /uL (0-900); Monocytes Percent Auto 4.4 % (3-14); Neutrophils Absolute Auto 7600 /uL (1500-7000); Platelet Count 219 X10^3/uL (150-400); Red Blood Cell Count 3.63 X10^6/uL (4.0-5.2); Red Cell Distribution Width 12.3 % (11.6-14.8); White Blood Cell Count 8.9 X10^3/uL (4.5-11.0)
--- NOTE | 2021-08-29 09:56 | PC.NURSE ---
Per Dr Russo, OK to be off monitor for ease of access to bathroom, if needed.
[2021-08-29 10:01] LABS: Alanine Aminotransferase 20 IU/L (<35); Albumin 5.1 g/dL (3.5-5.0); Albumin Globulin Ratio 1.5 (1.0-2.8); Alkaline Phosphatase 66 U/L (38-126); Aspartate Aminotransferase 36 IU/L (14-36); BUN Creatinine Ratio 19.4 (6-22); Blood Urea Nitrogen 26 mg/dL (7-17); Calcium 10.3 mg/dL (8.4-10.2); Carbon Dioxide 29 mmol/L (22-32); Chloride 96 mmol/L (98-107); Estimated Glomerular Filt Rate 40.3 mL/min (>60); Globulin 3.3 g/dL (1.7-4.1); Glucose 171 mg/dL (80-110); HEMOLYSIS 29 (0-50); Lipase 186 U/L (23-300); Potassium 3.8 mmol/L (3.4-5.1); Sodium 140 mmol/L (137-145); Total Protein 8.4 g/dL (6.3-8.2)
[2021-08-29] MEDS: HYOSCYAMINE 0.125 MG TABLET PO (10:43)
[2021-08-29 11:39] VITALS: BP 160/65; PULSE 65; RESP 18; O2SAT 94
[2021-08-29 12:13] LABS: Bacteria Urine Moderate (10-30); Culture Indicated Urine Specimen Cultured; RBC Urine None Seen (0-5/HPF); Squamous Epithelial Cell Urine 1-5 /HPF (0-5/HPF); WBC Urine 5-10/HPF (0-5/HPF)
[2021-08-29 13:13] VITALS: BP 130/61; PULSE 100; O2SAT 97
== END 2021-08-29 13:14 | disposition home or self-care (01) ==
PROVIDERS: Emergency Provider Emergency Medicine; Family Provider Family Medicine; PCP Family Medicine
DX: R11.2 Nausea with vomiting, unspecified (principal); R10.9 Unspecified abdominal pain
CPT/HCPCS: 36415; 80053; 81003; 81015; 83690; 85025; 87086; 96374; 96375; 99284; C9113; J2405

== ENCOUNTER → 2021-09-11 17:13 | Outpatient (ROUT) | payer MEDICARE, SELFPAY ==
[2019-08-24 15:10] VITALS: BMI 28.5
[2021-09-12 08:13] LABS: Fecal Immunochemical Test Negative (Negative)
== END ==
PROVIDERS: Family Provider Family Medicine; PCP Family Medicine; Visit Provider Family Medicine
DX: Z12.11 Encounter for screening for malignant neoplasm of colon (principal)
CPT/HCPCS: 82274

== ENCOUNTER → 2021-12-21 13:11 | Outpatient (CLI) | payer MEDICARE, SELFPAY ==
[2019-08-24 15:10] VITALS: BMI 28.5
--- NOTE | 2021-12-21 | DI.MG.S_ITS ---
BILATERAL DIGITAL SCREENING MAMMOGRAM 3D/2D WITH CAD: 12/21/2021 CLINICAL: Routine screening. Personal history of right breast cancer. Family history of breast cancer. Comparison is made to exams dated: 12/16/2020 mammogram, 12/16/2019 mammogram, and 11/04/2018 mammogram - . The tissue of both breasts is heterogeneously dense. This may lower the sensitivity of mammography. Current study was also evaluated with a Computer Aided Detection (CAD) system. There are benign calcifications in the left breast. There also are benign post operative findings in the right breast. No significant masses, calcifications, or other findings are seen in either breast. There has been no significant interval change. IMPRESSION: BENIGN There is no mammographic evidence of malignancy. A 1 year screening mammogram is recommended. This exam was interpreted at Station ID: [id number]. NOTE: For mammograms, a report in lay terms will be sent to the patient. Approximately 15% of breast malignancies will not be visualized mammographically. In the management of a palpable breast mass, a negative mammogram must not discourage biopsy of a clinically suspicious lesion. Electronically Signed By: Peter bradley/cristian:12/21/2021 17:34:37 copy to: Maeve Araiza letter sent: Normal Exam ACR BI-RADS Category 2: Benign Finding(s) 3342F
== END ==
PROVIDERS: Family Provider Family Medicine; PCP Family Medicine; Referring Provider Internal Medicine Medical Oncology; Visit Provider Internal Medicine Medical Oncology
DX: Z12.31 Encounter for screening mammogram for malignant neoplasm of breast (principal); Z85.3 Personal history of malignant neoplasm of breast; Z80.3 Family history of malignant neoplasm of breast
CPT/HCPCS: 77063; 77067

== ENCOUNTER → 2022-08-08 12:08 | Outpatient (CLI) | payer MEDICARE, SELFPAY ==
[2019-08-24 15:10] VITALS: BMI 28.5
--- NOTE | 2022-08-08 12:09 | DI.RAD.S_ITS ---
PROCEDURE: XR HIP W PEL IF DONE VALERIA MIN 4V INDICATIONS: Right hip pain - possible OA TECHNIQUE: AP pelvis with lateral view(s) of the hip(s). COMPARISON: None. FINDINGS: Bones: No fractures or dislocations. Pelvic ring appears intact. No suspicious bony lesions. Bilateral nonuniform joint space narrowing. Osteophytic lipping of the acetabuli. Soft tissues: The visualized bowel gas pattern is normal. No suspicious soft tissue calcifications. IMPRESSION: Mild bilateral hip osteoarthritis. Dictated by: Alhaji Casarez M.D. on 08/08/2022 at 15:17 Approved by: Alhaji Casarez M.D. on 08/08/2022 at 15:18
== END ==
PROVIDERS: Family Provider Family Medicine; PCP Family Medicine; Referring Provider Physician Assistant; Visit Provider Physician Assistant
DX: M25.551 Pain in right hip (principal); M16.0 Bilateral primary osteoarthritis of hip
CPT/HCPCS: 73522

== ENCOUNTER → 2023-03-05 14:41 | Outpatient (CLI) | payer MEDICARE, SELFPAY ==
[2019-08-24 15:10] VITALS: BMI 28.5
--- NOTE | 2023-03-05 14:43 | DI.RAD.S_ITS ---
PROCEDURE: XR SHOULDER LT MIN 2V INDICATIONS: shoulder pain TECHNIQUE: 3 views of the shoulder were acquired. COMPARISON: None. FINDINGS: Bones: No fractures or dislocations. No suspicious bony lesions. Visualized ribs appear intact. Mild acromioclavicular joint space narrowing with osteophytosis. Soft tissues: No suspicious soft tissue calcifications. IMPRESSION: Mild acromioclavicular osteoarthritis. Dictated by: Alhaji Casarez M.D. on 03/05/2023 at 16:19 Approved by: Alhaji Casarez M.D. on 03/05/2023 at 16:19
== END ==
PROVIDERS: Family Provider Family Medicine; PCP Family Medicine; Referring Provider Family Medicine; Visit Provider Family Medicine
DX: M25.512 Pain in left shoulder (principal); M65.30 Trigger finger, unspecified finger; K42.9 Umbilical hernia without obstruction or gangrene; M19.012 Primary osteoarthritis, left shoulder
CPT/HCPCS: 73030

== ENCOUNTER → 2023-06-18 11:40 | Outpatient (CLI) | payer MEDICARE, SELFPAY ==
[2019-08-24 15:10] VITALS: BMI 28.5
--- NOTE | 2023-06-18 12:20 | DI.RAD.S_ITS ---
PROCEDURE: XR CHEST 2V INDICATIONS: Chest congestion, possible pneumonia TECHNIQUE: 2 views of the chest were acquired. COMPARISON: [facility], , CHEST 2 VIEW, 09/07/2011, 11:42. FINDINGS: Surgical changes and devices: Postsurgical changes and surgical clips project over the anterior right chest/breast. Lungs and pleura: Lungs are clear. No pleural effusions or pneumothorax. Mediastinum: Mediastinal contours are normal. Heart size is normal. Bones and chest wall: No suspicious bony abnormalities. Soft tissues appear unremarkable. IMPRESSION: No acute cardiopulmonary abnormalities or focal airspace disease. Dictated by: Peter Larose M.D. on 06/18/2023 at 13:29 Approved by: Peter Larose M.D. on 06/18/2023 at 13:30
[2023-06-18 12:41] LABS: COVID-19 CEPHEID 4-PLEX PCR Negative (Negative); Influenza A - CEPHEID Flu A NEGATIVE (NEGATIVE); Influenza B - CEPHEID Flu B NEGATIVE (NEGATIVE); Respiratory Syncytial Virus Negative (Negative)
== END ==
PROVIDERS: Family Provider Family Medicine; PCP Family Medicine; Referring Provider Physician Assistant Surgical; Visit Provider Physician Assistant Surgical
DX: R05.1 Acute cough (principal); R09.89 Other specified symptoms and signs involving the circulatory and respiratory systems
CPT/HCPCS: 0241U; 71046

== ENCOUNTER → 2023-07-12 10:30 | Outpatient (CLI) | payer MEDICARE, SELFPAY ==
[2019-08-24 15:10] VITALS: BMI 28.5
== END ==
PROVIDERS: Family Provider Family Medicine; PCP Family Medicine; Referring Provider Family Medicine; Visit Provider Family Medicine
DX: J44.9 Chronic obstructive pulmonary disease, unspecified (principal); Z87.891 Personal history of nicotine dependence
CPT/HCPCS: 94060; 94726; 94729

== ENCOUNTER → 2023-10-24 09:52 | Outpatient (CLI) | payer MEDICARE, SELFPAY ==
[2019-08-24 15:10] VITALS: BMI 28.5
[2023-10-24 10:50] LABS: Add Manual Diff / Slide Review NO; Basophils Absolute Auto 0 /uL (0-100); Basophils Percent Auto 0.5 % (0-2); Eosinophils Absolute Auto 100 /uL (0-450); Eosinophils Percent Auto 2.2 % (2-4); Hematocrit 37.7 % (36-46); Hemoglobin 12.8 g/dL (12.0-16.0); Lymphocytes Absolute Auto 1400 /uL (1100-4500); Lymphocytes Percent Auto 28.1 % (25-40); Mean Corpuscular Hemoglobin 36.4 PG (26-34); Mean Corpuscular Volume 107.3 fL (80-100); Monocytes Absolute Auto 400 /uL (0-900); Monocytes Percent Auto 8.9 % (3-14); Neutrophils Absolute Auto 3000 /uL (1500-7000); Neutrophils Percent Auto 60.3 % (50-75); Platelet Count 192 X10^3/uL (150-400); Red Blood Cell Count 3.52 X10^6/uL (4.0-5.2); Red Cell Distribution Width 12.7 % (11.6-14.8); White Blood Cell Count 4.9 X10^3/uL (4.5-11.0)
[2023-10-24 11:14] LABS: Alanine Aminotransferase 18 IU/L (<35); Albumin 4.6 g/dL (3.5-5.0); Alkaline Phosphatase 78 U/L (38-126); Aspartate Aminotransferase 29 IU/L (14-36); BUN Creatinine Ratio 25.4 (6-22); Bilirubin Total 0.7 mg/dL (0.2-1.3); Blood Urea Nitrogen 29 mg/dL (7-17); Calcium 9.5 mg/dL (8.4-10.2); Carbon Dioxide 28 mmol/L (22-32); Chloride 103 mmol/L (98-107); Estimated Glomerular Filt Rate 48 mL/min (>60); Globulin 2.3 g/dL (1.7-4.1); Glucose 109 mg/dL (80-110); HEMOLYSIS < 15 (0-50); Potassium 4.4 mmol/L (3.4-5.1); Sodium 138 mmol/L (137-145); Total Protein 6.9 g/dL (6.3-8.2)
[2023-10-24 11:56] LABS: Vitamin B12 > 1000 pg/mL (239-931)
== END ==
PROVIDERS: Family Provider Family Medicine; PCP Family Medicine; Referring Provider Family Medicine; Visit Provider Family Medicine
DX: I10 Essential (primary) hypertension (principal); D53.9 Nutritional anemia, unspecified; N18.30 Chronic kidney disease, stage 3 unspecified
CPT/HCPCS: 36415; 80053; 82607; 85025

== ENCOUNTER → 2023-10-28 13:26 | Outpatient (CLI) | payer MEDICARE, SELFPAY ==
[2019-08-24 15:10] VITALS: BMI 28.5
[2023-10-30 09:13] LABS: Fecal Immunochemical Test Negative (Negative)
== END ==
PROVIDERS: Family Provider Family Medicine; PCP Family Medicine; Referring Provider Family Medicine; Visit Provider Family Medicine
DX: Z12.11 Encounter for screening for malignant neoplasm of colon (principal)
CPT/HCPCS: 82274

== ENCOUNTER → 2024-10-28 14:19 | Outpatient (CLI) | payer MEDICARE, SELFPAY ==
[2019-08-24 15:10] VITALS: BMI 28.5
[2024-10-28 14:45] LABS: Hematocrit 35.5 % (36-46); Hemoglobin 12.4 g/dL (12.0-16.0); Mean Corpuscular HGB Conc 34.8 % (30-36); Mean Corpuscular Hemoglobin 36.9 PG (26-34); Mean Corpuscular Volume 106.1 fL (80-100); Platelet Count 199 X10^3/uL (150-400); Red Blood Cell Count 3.35 X10^6/uL (4.0-5.2); Red Cell Distribution Width 12.7 % (11.6-14.8); White Blood Cell Count 5.4 X10^3/uL (4.5-11.0)
[2024-10-28 15:22] LABS: Alanine Aminotransferase 22 IU/L (<35); Albumin 4.8 g/dL (3.5-5.0); Albumin Globulin Ratio 2.1 (1.0-2.8); Alkaline Phosphatase 77 U/L (38-126); Aspartate Aminotransferase 34 IU/L (14-36); BUN Creatinine Ratio 27.9 (6-22); Bilirubin Total 1.1 mg/dL (0.2-1.3); Blood Urea Nitrogen 36 mg/dL (7-17); Calcium 9.9 mg/dL (8.4-10.2); Carbon Dioxide 25 mmol/L (22-32); Chloride 102 mmol/L (98-107); Estimated Glomerular Filt Rate 41 mL/min (>60); Globulin 2.3 g/dL (1.7-4.1); Glucose 97 mg/dL (70-99); HEMOLYSIS 51 (0-50); Sodium 137 mmol/L (137-145); Total Protein 7.1 g/dL (6.3-8.2)
== END ==
PROVIDERS: Family Provider Family Medicine; PCP Family Medicine; Referring Provider Family Medicine; Visit Provider Family Medicine
DX: Z00.00 Encounter for general adult medical examination without abnormal findings (principal); I10 Essential (primary) hypertension; F43.20 Adjustment disorder, unspecified; Z72.89 Other problems related to lifestyle
CPT/HCPCS: 36415; 80053; 85027